=== PATIENT | female | born 1980 | race Caucasian/White ===

== ENCOUNTER 2024-07-18 15:34 | Observation (INO) ==
[2024-07-18 16:26] LABS: Basophils # (auto) 0.07 K/uL (0.00-0.20); Basophils % (auto) 0.5 %; Eosinophils # (auto) 0.67 K/uL (0.00-0.50); Eosinophils % (auto) 4.5 %; Hemoglobin 13.4 g/dl (12.0-16.0); Immature Granulocytes # (auto) 0.07 K/uL (0.01-0.20); Immature Granulocytes % (auto) 0.5 %; Lymphocytes # (auto) 3.49 K/uL (1.20-3.40); Lymphocytes % (auto) 23.3 %; Mean Corpuscular Hemoglobin 27.4 pg (25.0-34.0); Mean Corpuscular Hgb Conc 32.7 g/dL (32.0-36.0); Mean Corpuscular Volume 83.8 fL (80.0-100.0); Mean Platelet Volume 9.8 fL (9.4-12.4); Monocytes # (auto) 0.88 K/uL (0.11-0.59); Monocytes % (auto) 5.9 %; Neutrophils % (auto) 65.3 %; Platelet Count 463 K/uL (130-400); RDW Coefficient of Variation 14.5 % (11.5-14.5); RDW Standard Deviation 43.8 fL (36.4-46.3); Red Blood Count 4.89 M/uL (4.20-5.40); White Blood Count 14.98 K/ul (4.8-10.8)
[2024-07-18 16:29] LABS: Appearance Urine Clear (Clear); Bilirubin Urine Negative (Negative); Blood Urine Negative (Negative); Color Urine Yellow; Glucose Urine UA Negative (Negative); Ketones Urine Negative (Negative); Leukocyte Esterase Urine Negative (Negative); Nitrite Urine Negative (Negative); Protein Urine Negative (Negative); Specific Gravity Urine 1.005 (1.000-1.030); Urobilinogen Urine Negative (Negative); pH Urine 6.5 (4.5-7.5)
--- NOTE | 2024-07-18 16:34 | Emergency Department Note ---
History of Present Illness General Chief complaint: Abdominal Pain Stated complaint: RT UPPER QUADRIENT PAIN Time Seen by Provider: 07/18/24 15:58 History of Present Illness Maximum Pain Intensity: 5 Patient is a 43-year-old female with past medical history significant for anxiety/depression, hypertension, asthma, acid reflux who presents to the emergency department for evaluation of right upper quadrant abdominal pain x 2-3 days. Historically, patient reports that she was diagnosed with gallstones at age 27 when she was . She had a very severe gallbladder attack at that time, but was not a surgical candidate due to her . Afterwards, she had the gallbladder evaluated, noting gallstones, but no surgical intervention was recommended. Patient notes that on occasion, she will have an episode that she attributes to her gallbladder where she gets right upper quadrant abdominal pain. She gets about 1 or 2 episodes per year. Her pain usually only lasts her for about a day. Patient states that she woke up with bilateral upper abdominal pain on Friday morning, 2 days ago. The pain localized to the right upper quadrant later that day. It is a constant, aching pain initially was a 3/10, now she rates it a 5/10. It radiates through to her back. She is nauseous but has not vomited. She reports some loose stools. She reports eating [employer] the day before her symptoms started. She denies any fever, chills, or malaise. She tried taking Tums without relief. Home Medications Medication Instructions Recorded Confirmed Type Albuterol (Ventolin) 2 puff inhalation QID 5 days ##0 09/05/08 07/18/24 History amlodipine 10 mg tablet 10 mg PO DAILY 07/18/24 07/18/24 History budesonide-formoterol HFA 160 1 puff inhalation BID 07/18/24 07/18/24 History mcg-4.5 mcg/actuation aerosol inhaler fluoxetine 40 mg capsule 40 mg PO DAILY 07/18/24 07/18/24 History montelukast 10 mg tablet 10 mg PO DAILY 07/18/24 07/18/24 History pantoprazole 40 mg tablet,delayed 40 mg PO DAILY 07/18/24 07/18/24 History release Allergies Allergy/AdvReac Type Severity Reaction Status Date / Time azithromycin Allergy Severe Rash Verified 07/18/24 20:22 Past Med/Surg History Problem List (Updated 07/18/24 @ 20:45 by Lindsay Bone) Right upper quadrant abdominal pain (Acute) Symptomatic cholelithiasis (Acute) Medical History GERD (gastroesophageal reflux disease) Hypertension Asthma Anxiety and depression Surgical History History of dilatation and curettage Social History Smoking Status: Unknown if ever smoked Preferred Language: [place]se Feels Safe at Home: Yes Review of Systems A total of 10 systems reviewed and were otherwise negative Physical Exam Vital Signs Vital Signs - 24 hr 07/18/24 15:40 07/18/24 16:00 07/18/24 16:07 Temperature 36.5 C Temperature Source Temporal Artery Scan Pulse Rate 96 H 86 Pulse Rate [Apical] 87 Pulse Rhythm [Apical] Regular Pulse Strength [Apical] Normal Respiratory Rate 19 20 Respiratory Effort / Characteristics Non-Labored Spontaneous Respiratory Depth Normal Respiratory Pattern Regular Blood Pressure 150/99 H Blood Pressure [Left Arm] 197/96 H Blood Pressure Mean 116 Blood Pressure Mean [Left Arm] 129 Blood Pressure Position [Left Arm] Lying Pulse Oximetry 95 98 Oxygen Delivery Method Room Air Room Air Sepsis Recent Fever Within 48 Hours No Sepsis New/Unexplained Change in Mental Status N/A Sepsis Action Taken by Nursing No Action Required 07/18/24 18:00 07/18/24 20:00 Temperature 36.8 C Temperature Source Oral Pulse Rate Pulse Rate [Apical] 77 82 Pulse Rhythm [Apical] Regular Pulse Strength [Apical] Normal Respiratory Rate 22 20 Respiratory Effort / Characteristics Non-Labored Spontaneous Non-Labored Spontaneous Respiratory Depth Normal Normal Respiratory Pattern Regular Regular Blood Pressure Blood Pressure [Left Arm] 153/105 H 137/103 H Blood Pressure Mean Blood Pressure Mean [Left Arm] 121 114 Blood Pressure Position [Left Arm] Lying Lying Pulse Oximetry 97 99 Oxygen Delivery Method Room Air Room Air Sepsis Recent Fever Within 48 Hours Sepsis New/Unexplained Change in Mental Status Sepsis Action Taken by Nursing CONSTITUTIONAL: Well-appearing 23-year-old female in no acute distress seated on the gurney. EYES: Pupils equal, round, reactive to light and accommodation. EOMs intact without nystagmus. Sclera are anicteric. CARDIOVASCULAR: Regular rate and rhythm. Peripheral pulses easily palpable. RESPIRATORY: Breath sounds equal and clear to auscultation. ABDOMEN: Bowel sounds are present. The abdomen is soft, nondistended, tender to percussion and palpation in the right upper quadrant, with voluntary guarding. Negative Silva sign. No CVA tenderness. INTEGUMENTARY: No lesions or rash, normal skin turgor. LYMPH: No lymphadenopathy. Course Course The patient was seen and assessed as above. External medical records are reviewed. She presents to the emergency department for evaluation of right upper quadrant abdominal pain. Known gallstones, and intermittently has flares, but this is worse and lasting longer than her normal. She was offered but declined medication needs in the emergency department. IV lock was initiated. Laboratory studies were collected. CBC with differential, CMP, lipase, urinalysis and serum hCG were ordered. Gallbladder ultrasound was obtained. Diagnostics, as interpreted by me: Laboratory studies: White count 15,000 with left shift noted. No anemia. Sodium 135, potassium 3.2, otherwise no electrolyte imbalance, no MIKEY. Bilirubin, AST and ALT are normal, slight, nonspecific elevation of the alk phos at 126. Lipase is negative. test negative. Urine microscopy clear. Imaging studies: Gallbladder ultrasound notes multiple gallstones and mildly dilated gallbladder with a possible stone lodged in the gallbladder neck. Gallbladder wall thickness is normal. There is no pericholecystic fluid. No ductal dilatation. Patient was reassessed. Laboratory and diagnostic imaging studies were reviewed with her. Consultation was placed with Dr. Nayeli Norton with general surgery. Options posed to the patient were admission for IV antibiotics and surgical intervention versus a trial of supportive care at home with close general surgery follow-up later this week. After discussing both options at length, patient has elected the former. Plan for admission discussed with underwriting support manager, Ariadna Burk. Contacted general surgery, Vivi Ortiz PA-C, and reviewed the patient. She evaluated the patient in the emergency department. Please refer to surgical H&P for further information. Differential diagnosis: GERD, gastritis, esophagitis, peptic ulcer disease, acute pancreatitis, biliary colic, acute cholecystitis, symptomatic cholelithiasis, choledocholithiasis, ascending cholangitis, among others. Administered Medications Discontinued Medications Piperacillin Sod/Tazobactam Sod (Zosyn) 4.5 gm in 100 mls @ 200 mls/hr IV NOW ONE; Protocol Stop: 07/18/24 20:38 Last Admin: 07/18/24 20:18 Dose: 200 mls/hr Documented By: BYRON Medical Decision Making Differential Diagnosis See ED course. Medical Records Attestation: I reviewed the patient's medical records. Home Medications Current Medication List: was personally reviewed by me Laboratory Data Attestation: I reviewed the patient's lab results. 07/18/24 16:09 07/18/24 16:09 Lab Results 07/18/24 07/18/24 Range/Units 16:09 16:10 WBC 14.98 H (4.8-10.8) K/ul RBC 4.89 (4.20-5.40) M/uL Hgb 13.4 (12.0-16.0) g/dl Hct 41.0 (37.0-47.0) % MCV 83.8 (80.0-100.0) fL MCH 27.4 (25.0-34.0) pg MCHC 32.7 (32.0-36.0) g/dL RDW Std Deviation 43.8 (36.4-46.3) fL RDW Coeff of [place] 14.5 (11.5-14.5) % Plt Count 463 H (130-400) K/uL MPV 9.8 (9.4-12.4) fL Immature Gran % (Auto) 0.5 % Neut % (Auto) 65.3 % Lymph % (Auto) 23.3 % [place] % (Auto) 5.9 % Eos % (Auto) 4.5 % Baso % (Auto) 0.5 % Neut # (Auto) 9.80 H (1.40-6.50) K/uL Lymph # (Auto) 3.49 H (1.20-3.40) K/uL [place] # (Auto) 0.88 H (0.11-0.59) K/uL Eos # (Auto) 0.67 H (0.00-0.50) K/uL Baso # (Auto) 0.07 (0.00-0.20) K/uL Immature Gran # (Auto) 0.07 (0.01-0.20) K/uL Sodium 135 L (136-145) mmol/L Potassium 3.2 L (3.5-5.1) mmol/L Chloride 102 (98-107) mmol/L Carbon Dioxide 23 (21-32) mmol/L Anion Gap 10 (3-11) BUN 11 (6-23) mg/dl Creatinine 0.94 (0.6-1.2) mg/dl Est Cr Clr Drug Dosing 76.9 ml/min eGFR 78.18 BUN/Creatinine Ratio 11.7 (10-20) Glucose 78 (70-99(Fasting)) mg/dl Calcium 9.4 (8.6-10.3) mg/dl Total Bilirubin 0.5 (0.2-1.0) mg/dl AST 19 (13-39) U/L ALT 16 (7-52) U/L Alkaline Phosphatase 126 H (34-104) U/L Total Protein 7.5 (6.0-8.3) gm/dl Albumin 4.3 (3.4-5.0) gm/dl Globulin 3.2 (2.5-4.0) gm/dl Albumin/Globulin Ratio 1.3 (0.9-2) Lipase 30 (11-82) U/L HCG, Qual Negative (Negative) Urine Color Yellow Urine Appearance Clear (Clear) Urine pH 6.5 (4.5-7.5) Ur Specific [place] 1.005 (1.000-1.030) Urine Protein Negative (Negative) Urine Glucose (UA) Negative (Negative) Urine Ketones Negative (Negative) Urine Blood Negative (Negative) Urine Nitrite Negative (Negative) Urine Bilirubin Negative (Negative) Urine Urobilinogen Negative (Negative) Ur Leukocyte Esterase Negative (Negative) Imaging Data Attestation: I personally reviewed and interpreted this imaging study as follows: Radiologist's Impression: Gallbladder Ultrasound 07/18/24 16:28 EXAM: US Abdomen Limited Right Upper Quadrant INDICATION: Pain. TECHNIQUE: Real-time ultrasound of the right upper quadrant with image documentation. COMPARISON: No relevant prior studies available. FINDINGS: Liver: Upper normal size. Mildly heterogeneous and minimally echogenic. Smooth cortical contour. No mass. No intrahepatic bile duct dilation. Gallbladder: Distended and contains multiple stones. 1 stone may be lodged in the neck. No wall thickening or pericholecystic fluid. Negative sonographic Silva sign.. Common bile duct: No significant abnormality noted. No stones. No dilation. Pancreas: No significant abnormality noted. Right kidney: 11.4 cm long. Normal cortical thickness and echotexture. No mass or stone. There is a simple cyst in the upper pole measuring 1.6 cm. No further assessment required.. IMPRESSION: 1. Multiple gallstones and a mildly dilated gallbladder with 1 possibly lodged in the neck. The wall is normal thickness at this time. If additional imaging is required to exclude early or developing acute cholecystitis, consider HIDA scan. 2. Hepatic steatosis. ACT 112: Negative or not required by law. Electronically signed by Malia Durbin 07-18-2024 5:49 PM MDM Narrative See ED course. Impression & Plan Symptomatic cholelithiasis, Right upper quadrant abdominal pain Discharge Plan Visit Data Chief Complaint: Abdominal Pain Stated Complaint: RT UPPER QUADRIENT PAIN ED Provider: Efraín Yates ED Midlevel Provider: Lindsay Bone Discharge Problem: Symptomatic cholelithiasis, Right upper quadrant abdominal pain Patient Disposition: Being Evaluated by Surgeon Forms Stand Alone Forms: My [facility] [place] [employer] Prescriptions Prescriptions: No Action Albuterol (Ventolin) inhaler 2 puff Inhalation QID 5 Days Qty: 0 fluoxetine 40 mg capsule 40 mg PO DAILY amlodipine 10 mg tablet 10 mg PO DAILY pantoprazole 40 mg tablet,delayed release (DR/EC) 40 mg PO DAILY montelukast 10 mg tablet 10 mg PO DAILY budesonide-formoterol 160-4.5 mcg/actuation HFA aerosol inhaler 1 puff INHALATION BID Referrals Referrals: Roxanne Newell MD [Physician] -
[2024-07-18 16:45] LABS: Albumin Globulin Ratio 1.3 (0.9-2); Albumin Level 4.3 gm/dl (3.4-5.0); BUN Creatinine Ratio 11.7 (10-20); Bilirubin,Total 0.5 mg/dl (0.2-1.0); Calcium 9.4 mg/dl (8.6-10.3); Creatinine Clr Calc Pharmacy 76.9 ml/min; Globulin 3.2 gm/dl (2.5-4.0); Potassium 3.2 mmol/L (3.5-5.1); Total Protein 7.5 gm/dl (6.0-8.3)
[2024-07-18 16:51] LABS: Pregnancy Test, Serum Negative (Negative)
--- NOTE | 2024-07-18 17:49 | Ultrasound Report ---
EXAM: US Abdomen Limited Right Upper Quadrant INDICATION: Pain. TECHNIQUE: Real-time ultrasound of the right upper quadrant with image documentation. COMPARISON: No relevant prior studies available. FINDINGS: Liver: Upper normal size. Mildly heterogeneous and minimally echogenic. Smooth cortical contour. No mass. No intrahepatic bile duct dilation. Gallbladder: Distended and contains multiple stones. 1 stone may be lodged in the neck. No wall thickening or pericholecystic fluid. Negative sonographic Silva sign.. Common bile duct: No significant abnormality noted. No stones. No dilation. Pancreas: No significant abnormality noted. Right kidney: 11.4 cm long. Normal cortical thickness and echotexture. No mass or stone. There is a simple cyst in the upper pole measuring 1.6 cm. No further assessment required.. IMPRESSION: 1. Multiple gallstones and a mildly dilated gallbladder with 1 possibly lodged in the neck. The wall is normal thickness at this time. If additional imaging is required to exclude early or developing acute cholecystitis, consider HIDA scan. 2. Hepatic steatosis. ACT 112: Negative or not required by law. Electronically signed by Malia Durbin 07-18-2024 5:49 PM
[2024-07-18] MEDS: PIPERACILLIN/TAZOBACTAM 4.5 GM/100 ML BAG IV ONE (20:18)
--- NOTE | 2024-07-18 20:57 | History & Physical Report ---
<Statement entered by Avis Fuller, - 07/20/24 12:53> I discussed this case with the overnight PA and agreed with the plan Date of Service July 18, 2024 Assessment & Plan (1) Acute cholecystitis: Plan: Patient is a 43-year-old female who presented to the ED for concerns for RUQ abdominal pain since Friday after eating fast food. Patient has had RUQ pain in the past for years, however it was never severe in nature and only happened 1-2 times per year so she has never perused surgery. Patient states pain has been present and consistent and has now started to radiate into her back. Patient was worked up in the ED this evening and was found to have an elevated WBC of 14 and US with results of gallbladder wall thickening and cholelithiasis. Patient denies any previous abdominal surgeries. She was seen and evaluated this evening by the surgery team and patient is nontoxic appearing and stable vitals. Patient is tender in the RUQ on exam with +Silva sign. Patient will be admitted to the surgical service. Clears for now, NPO after midnight IV hydration with LR Pain control with IV Tylenol and Morphine for moderate-severe pain IV antibiotic coverage with Zosyn f/u am labs Patient will tentatively undergo surgical intervention tomorrow for cholecystectomy. Patient is in agreement with this plan. Hospital consult placed for management of chronic conditions/resumption of home medications History of Present Illness Chief Complaint: Abdominal pain Patient is a 43-year-old female who presented to the ED for concerns for abdominal pain. Patient states that for the last 2-3 days she's had persistent right upper quadrant abdominal pain. On occasion she states she has had gallbladder attacks in the past but they have been mild in nature and never lasted very long. She states that when she was in her 20s she had similar symptoms and was found to have gallstones however due to her she did not undergo surgery. She did follow up with her PCP regarding her gallstones after giving , however there was no acute cholecystics and her symptoms had ultimately subsided and she never perused surgery. She states prior to this, she has only had episodes of pain 1-2 times a year. However, since this past Friday she has had persistent pain after eating fast food the night before. States that the pain originally started in her epigastric area that has now moved into her RUQ and has been constant since. States the pain does now radiate into her back/shoulder blades. She has had associated nausea however no emesis. She otherwise denies new onset fevers, chills, CP or SOB. She was worked up in the ED and was found to have an elevated WBC at 14 along with US imaging with results of gallbladder wall thickening and gallstones. Patient also denies any previous abdominal surgeries. Allergies Allergy/AdvReac Type Severity Reaction Status Date / Time azithromycin Allergy Severe Rash Verified 07/18/24 20:22 Home Medications Medication Instructions Recorded Confirmed Type Albuterol (Ventolin) 2 puff inhalation QID 5 days ##0 09/05/08 07/18/24 History amlodipine 10 mg tablet 10 mg PO DAILY 07/18/24 07/18/24 History budesonide-formoterol HFA 160 1 puff inhalation BID 07/18/24 07/18/24 History mcg-4.5 mcg/actuation aerosol inhaler fluoxetine 40 mg capsule 40 mg PO DAILY 07/18/24 07/18/24 History montelukast 10 mg tablet 10 mg PO DAILY 07/18/24 07/18/24 History pantoprazole 40 mg tablet,delayed 40 mg PO DAILY 07/18/24 07/18/24 History release Past Med/Surg History Problem List (Updated 07/18/24 @ 21:43 by Vivi Parikh PA-C) Acute cholecystitis Right upper quadrant abdominal pain (Acute) Symptomatic cholelithiasis (Acute) Medical History GERD (gastroesophageal reflux disease) Hypertension Asthma Anxiety and depression Surgical History History of dilatation and curettage Social History Smoking Status: Unknown if ever smoked Preferred Language: Georgian Feels Safe at Home: Yes Review of Systems Review of Systems: All systems reviewed & are unremarkable except as noted in HPI & below Physical Exam Constitutional: WD/WN, vitals as above Respiratory: normal respiratory effort, lungs clear to auscultation Cardiovascular: RRR, no murmur, no edema Gastrointestinal (Abdomen): Abdomen soft and nondistended. +TTP in the RUQ with +Silva' sig. No rebound, guarding or signs of peritonitis Skin: no rashes, warm and dry Psychiatric: A+Ox3, euthymic affect Results & Data Results & Data Vital Signs (Past 12 Hours) Vital Signs Temp Pulse Pulse Resp BP BP Pulse Ox 07/18/24 20:48 80 07/18/24 20:00 36.8 C 82 20 137/103 H 99 07/18/24 18:00 77 22 153/105 H 97 07/18/24 16:07 86 07/18/24 16:00 87 20 197/96 H 98 07/18/24 15:40 36.5 C 96 H 19 150/99 H 95 O2 Del Method 07/18/24 20:48 07/18/24 20:00 Room Air 07/18/24 18:00 Room Air 07/18/24 16:07 07/18/24 16:00 Room Air 07/18/24 15:40 Room Air Diagnostic Findings EXAM: US Abdomen Limited Right Upper Quadrant INDICATION: Pain. TECHNIQUE: Real-time ultrasound of the right upper quadrant with image documentation. COMPARISON: No relevant prior studies available. FINDINGS: Liver: Upper normal size. Mildly heterogeneous and minimally echogenic. Smooth cortical contour. No mass. No intrahepatic bile duct dilation. Gallbladder: Distended and contains multiple stones. 1 stone may be lodged in the neck. No wall thickening or pericholecystic fluid. Negative sonographic Silva sign.. Common bile duct: No significant abnormality noted. No stones. No dilation. Pancreas: No significant abnormality noted. Right kidney: 11.4 cm long. Normal cortical thickness and echotexture. No mass or stone. There is a simple cyst in the upper pole measuring 1.6 cm. No further assessment required.. IMPRESSION: 1. Multiple gallstones and a mildly dilated gallbladder with 1 possibly lodged in the neck. The wall is normal thickness at this time. If additional imaging is required to exclude early or developing acute cholecystitis, consider HIDA scan. 2. Hepatic steatosis. Code Status & VTE Plan VTE Prophylaxis Plan VTE Prophylaxis will be ordered: Yes PG Care Time/CCT Total # of Minutes Spent Total Time Spent with Patient: Total time spent is greater than 50% in coordination of care (as documented) at patient's floor/unit and/or counseling patient: Coding Level of Care Code 60279 INT INP/OBS CARE MIN Diagnoses Acute cholecystitis K81.0
[2024-07-18] MEDS ORDERED: ONDANSETRON INJ 2 MG/ML 2 ML VIAL IV PRN (22:35)
[2024-07-18] MEDS ORDERED: MoRPHine SULFATE 2 MG/ML CARP IV PRN (22:35)
[2024-07-18] MEDS ORDERED: MoRPHine SULFATE 4 MG/ML 1 ML CARP\\VIAL IV PRN (22:35)
[2024-07-18] MEDS: LACTATED RINGER'S 1,000 ML IV SCH (23:04)
[2024-07-19 00:52] LABS: Magnesium 1.7 mg/dl (1.7-2.4)
[2024-07-19] MEDS: POTASSIUM CHLORIDE CRTAB 20 MEQ TABCR PO STA (00:56)
[2024-07-19] MEDS: POTASSIUM CHLORIDE 20 MEQ in D5W AND LACTATED RINGERS 1,000 ML IV ONE (01:38)
[2024-07-19] MEDS: PIPERACILLIN/TAZOBACTAM 4.5 GM/100 ML BAG IV SCH (01:39)
--- NOTE | 2024-07-19 01:50 | Hospitalist Consultation ---
Date of Consultation July 19, 2024 Assessment & Plan (1) Acute cholecystitis: Final Assessment and Recommendations as follows : Acute cholecystitis No sepsis for now hypertension, slightly elevated bronchial asthma, stable Hypokalemia secondary decreased p.o. intake Agree with Zosyn for cholecystitis Surgery contemplated today. Replace potassium DVT prophylaxis. SCDs as per admission orders Thank you very much for this consultation. Dr. Bates will follow patient's progress. Text document was generated using [employer] voice recognition software. It may contain grammatical or spelling errors. Kindly contact undersigned for clarification of any documentation item in question. History of Present Illness Reason for Consultation: Medical management Requesting Physician: Dr. Norton/Vivi Parikh PA-C Attending Physician: Avis Fuller DO History of Present Illness PCP : Trinh Whelan PA-C History obtained from patient and records. Medical history significant for hypertension, bronchial asthma, cholelithiasis. 2 days history of achy right upper quadrant pain similar to gallstone attack but not as severe. Some radiation to the back. Nausea without emesis. Cheeseburger and [place] fries consumption 3 days ago which is not usual food fare for patient. No fever, no chills, no chest pain, no SOB. Patient consulted ER yesterday. Zosyn administered for cholecystitis. Patient admitted by General Surgery service. Medical History as above Surgical History : D&C Family History : Dementia, heart disease, seizures Personal/Social history : Non-smoker, occasional EtOH intake, [employer] nurse Allergies Allergy/AdvReac Type Severity Reaction Status Date / Time azithromycin Allergy Severe Rash Verified 07/18/24 20:22 Home Medications Medication Instructions Recorded Confirmed Type Albuterol (Ventolin) 2 puff inhalation QID 5 days ##0 09/05/08 07/18/24 History amlodipine 10 mg tablet 10 mg PO DAILY 07/18/24 07/18/24 History budesonide-formoterol HFA 160 1 puff inhalation BID 07/18/24 07/18/24 History mcg-4.5 mcg/actuation aerosol inhaler fluoxetine 40 mg capsule 40 mg PO DAILY 07/18/24 07/18/24 History montelukast 10 mg tablet 10 mg PO DAILY 07/18/24 07/18/24 History pantoprazole 40 mg tablet,delayed 40 mg PO DAILY 07/18/24 07/18/24 History release Patient History Medical History GERD (gastroesophageal reflux disease) Hypertension Asthma Anxiety and depression Surgical History History of dilatation and curettage Social History Smoking Status: Never smoker Second Hand Exposure: No; Do You Dip or Chew Tobacco: No; Tobacco Cessation Education Requested by Patient: No Hx Alcohol Use: Yes Alcohol type: beer Hx Substance Use: No Preferred Language: Persian Communication Ability: Effective Doctor Of Radiology Required: No Beliefs That Will Affect Care: None Current Living Situation: Family Other Information That Helps Us Care for You: No Feels Safe at Home: Yes Safety Concerns: Feels Safe At This Time Assistive Devices: Glasses Review of Systems Review of Systems: As per HPI, all other systems reviewed and negative Physical Exam Physical Exam: GENERAL: Comfortable, obese, pleasant, no respiratory distress SKIN: Normal color, warm HEENT: [place] palpebral conjunctivae, no ptosis, dry buccal mucosa NECK : Supple, no tenderness CHEST : CTA, no tenderness HEART : RRR, no obvious murmurs ABDOMEN: Some distention, minimal RUQ tenderness EXTREMITIES : Minimal LE swelling, no LE tenderness, no other conspicuous deformities noted NEUROLOGIC : Coherent, no facial asymmetry, no other gross focality Results & Data Results & Data Vital Signs (Past 12 Hours) Vital Signs Temp Pulse Pulse Pulse Resp BP BP 07/18/24 22:35 36.9 C 74 18 154/97 H 07/18/24 22:35 07/18/24 22:35 36.9 C 74 18 154/97 H 07/18/24 22:00 79 18 132/80 07/18/24 20:48 80 07/18/24 20:00 36.8 C 82 20 137/103 H 07/18/24 18:00 77 22 153/105 H 07/18/24 16:07 86 07/18/24 16:00 87 20 197/96 H 07/18/24 15:40 36.5 C 96 H 19 150/99 H Pulse Ox Pulse Ox O2 Del Method O2 Del Method 07/18/24 22:35 95 Room Air 07/18/24 22:35 95 Room Air 07/18/24 22:35 95 Room Air 07/18/24 22:00 96 Room Air 07/18/24 20:48 07/18/24 20:00 99 Room Air 07/18/24 18:00 97 Room Air 07/18/24 16:07 07/18/24 16:00 98 Room Air 07/18/24 15:40 95 Room Air Laboratory Results Laboratory Results WBC 14.98 K/ul (4.8-10.8) H 07/18/24 16:09 RBC 4.89 M/uL (4.20-5.40) 07/18/24 16:09 Hgb 13.4 g/dl (12.0-16.0) 07/18/24 16:09 Hct 41.0 % (37.0-47.0) 07/18/24 16:09 MCV 83.8 fL (80.0-100.0) 07/18/24 16:09 MCH 27.4 pg (25.0-34.0) 07/18/24 16:09 MCHC 32.7 g/dL (32.0-36.0) 07/18/24 16:09 RDW Std Deviation 43.8 fL (36.4-46.3) 07/18/24 16:09 RDW Coeff of [place] 14.5 % (11.5-14.5) 07/18/24 16:09 Plt Count 463 K/uL (130-400) H 07/18/24 16:09 MPV 9.8 fL (9.4-12.4) 07/18/24 16:09 Immature Gran % (Auto) 0.5 % 07/18/24 16:09 Neut % (Auto) 65.3 % 07/18/24 16:09 Lymph % (Auto) 23.3 % 07/18/24 16:09 [place] % (Auto) 5.9 % 07/18/24 16:09 Eos % (Auto) 4.5 % 07/18/24 16:09 Baso % (Auto) 0.5 % 07/18/24 16:09 Neut # (Auto) 9.80 K/uL (1.40-6.50) H 07/18/24 16:09 Lymph # (Auto) 3.49 K/uL (1.20-3.40) H 07/18/24 16:09 [place] # (Auto) 0.88 K/uL (0.11-0.59) H 07/18/24 16:09 Eos # (Auto) 0.67 K/uL (0.00-0.50) H 07/18/24 16:09 Baso # (Auto) 0.07 K/uL (0.00-0.20) 07/18/24 16:09 Immature Gran # (Auto) 0.07 K/uL (0.01-0.20) 07/18/24 16:09 Sodium 135 mmol/L (136-145) L 07/18/24 16:09 Potassium 3.2 mmol/L (3.5-5.1) L 07/18/24 16:09 Chloride 102 mmol/L (98-107) 07/18/24 16:09 Carbon Dioxide 23 mmol/L (21-32) 07/18/24 16:09 Anion Gap 10 (3-11) 07/18/24 16:09 BUN 11 mg/dl (6-23) 07/18/24 16:09 Creatinine 0.94 mg/dl (0.6-1.2) 07/18/24 16:09 Est Cr Clr Drug Dosing 76.9 ml/min 07/18/24 16:09 eGFR 78.18 07/18/24 16:09 BUN/Creatinine Ratio 11.7 (10-20) 07/18/24 16:09 Glucose 78 mg/dl (70-99(Fasting)) 07/18/24 16:09 Calcium 9.4 mg/dl (8.6-10.3) 07/18/24 16:09 Magnesium 1.7 mg/dl (1.7-2.4) 07/18/24 16:09 Total Bilirubin 0.5 mg/dl (0.2-1.0) 07/18/24 16:09 AST 19 U/L (13-39) 07/18/24 16:09 ALT 16 U/L (7-52) 07/18/24 16:09 Alkaline Phosphatase 126 U/L (34-104) H 07/18/24 16:09 Total Protein 7.5 gm/dl (6.0-8.3) 07/18/24 16:09 Albumin 4.3 gm/dl (3.4-5.0) 07/18/24 16:09 Globulin 3.2 gm/dl (2.5-4.0) 07/18/24 16:09 Albumin/Globulin Ratio 1.3 (0.9-2) 07/18/24 16:09 Lipase 30 U/L (11-82) 07/18/24 16:09 HCG, Qual Negative (Negative) 07/18/24 16:09 Urine Color Yellow 07/18/24 16:10 Urine Appearance Clear (Clear) 07/18/24 16:10 Urine pH 6.5 (4.5-7.5) 07/18/24 16:10 Ur Specific [place] 1.005 (1.000-1.030) 07/18/24 16:10 Urine Protein Negative (Negative) 07/18/24 16:10 Urine Glucose (UA) Negative (Negative) 07/18/24 16:10 Urine Ketones Negative (Negative) 07/18/24 16:10 Urine Blood Negative (Negative) 07/18/24 16:10 Urine Nitrite Negative (Negative) 07/18/24 16:10 Urine Bilirubin Negative (Negative) 07/18/24 16:10 Urine Urobilinogen Negative (Negative) 07/18/24 16:10 Ur Leukocyte Esterase Negative (Negative) 07/18/24 16:10 Impressions Gallbladder Ultrasound 07/18/24 16:28 EXAM: US Abdomen Limited Right Upper Quadrant INDICATION: Pain. TECHNIQUE: Real-time ultrasound of the right upper quadrant with image documentation. COMPARISON: No relevant prior studies available. FINDINGS: Liver: Upper normal size. Mildly heterogeneous and minimally echogenic. Smooth cortical contour. No mass. No intrahepatic bile duct dilation. Gallbladder: Distended and contains multiple stones. 1 stone may be lodged in the neck. No wall thickening or pericholecystic fluid. Negative sonographic Silva sign.. Common bile duct: No significant abnormality noted. No stones. No dilation. Pancreas: No significant abnormality noted. Right kidney: 11.4 cm long. Normal cortical thickness and echotexture. No mass or stone. There is a simple cyst in the upper pole measuring 1.6 cm. No further assessment required.. IMPRESSION: 1. Multiple gallstones and a mildly dilated gallbladder with 1 possibly lodged in the neck. The wall is normal thickness at this time. If additional imaging is required to exclude early or developing acute cholecystitis, consider HIDA scan. 2. Hepatic steatosis. ACT 112: Negative or not required by law. Electronically signed by Malia Durbin 07-18-2024 5:49 PM
[2024-07-19] MEDS: MAGNESIUM SULFATE / D5W 1 GM/100 ML BAG IV ONE (02:03)
[2024-07-19] MEDS: ACETAMINOPHEN 1,000 MG/100 ML VIAL IV PRN (02:31)
[2024-07-19] MEDS ORDERED: ALBUT/IPRATROP 3MG/0.5MG NEB 3 ML VIAL NEB PRN (03:05)
[2024-07-19 06:10] LABS: Basophils # (auto) 0.07 K/uL (0.00-0.20); Basophils % (auto) 0.6 %; Eosinophils # (auto) 0.68 K/uL (0.00-0.50); Eosinophils % (auto) 5.6 %; Hematocrit (blood only) 38.5 % (37.0-47.0); Hemoglobin 12.4 g/dl (12.0-16.0); Immature Granulocytes # (auto) 0.05 K/uL (0.01-0.20); Immature Granulocytes % (auto) 0.4 %; Lymphocytes # (auto) 2.38 K/uL (1.20-3.40); Lymphocytes % (auto) 19.5 %; Mean Corpuscular Hemoglobin 27.1 pg (25.0-34.0); Mean Corpuscular Hgb Conc 32.2 g/dL (32.0-36.0); Mean Corpuscular Volume 84.2 fL (80.0-100.0); Monocytes # (auto) 0.81 K/uL (0.11-0.59); Monocytes % (auto) 6.6 %; Neutrophils # (auto) 8.22 K/uL (1.40-6.50); Neutrophils % (auto) 67.3 %; Platelet Count 414 K/uL (130-400); RDW Coefficient of Variation 14.6 % (11.5-14.5); RDW Standard Deviation 44.8 fL (36.4-46.3); Red Blood Count 4.57 M/uL (4.20-5.40); White Blood Count 12.21 K/ul (4.8-10.8)
[2024-07-19 06:25] LABS: Albumin Level 3.5 gm/dl (3.4-5.0); BUN Creatinine Ratio 10.7 (10-20); Bilirubin Direct 0.1 mg/dl (0-0.2); Bilirubin,Total 0.7 mg/dl (0.2-1.0); Calcium 8.5 mg/dl (8.6-10.3); Creatinine Clr Calc Pharmacy 80.2 ml/min; Potassium 3.7 mmol/L (3.5-5.1); Total Protein 6.6 gm/dl (6.0-8.3)
--- OUTSIDE RECORDS SUMMARY | 2024-07-19 06:30 | External Medical Summary | Summary of Care ---
Author Name Unknown Organization [facility] Address [address] [place] [address] Phone [phone] Care Team Providers Care Retort Load Expediter Name Role Phone Shamar Dowell MD Primary Care Provider [phone] Reason for Visit * Reason Comments Physical-Exam Wellness form for In surance Encounter Details Date Type Department Care Team ([facility] st Contact Info) Description 03/19/2024 7:40 AM EDT Office Visit [facility] [address] [place] [address] Shamar Dowell MD [address] [place] [address] Physical exam, annual*; HTN, goal below 140/90; Intermittent asthma with reliever use up to twice per week without complication; Major depressive disorder, recurrent, moderate (HCC); LUCY (generalized anxiety disorder); Vaccine for viral hepatitis; Encounter for screening mammogram for malignant neoplasm of breast; Screening for depression; Gastroesophageal reflux disease without esophagitis; Class 1 obesity without serious comorbidity with body mass index (BMI) of 30.0 to 30.9 in adult, unspecified obesity type; Cervical cancer screening; Family history of thyroid disease; Weight gain Allergies Active Allergy Reactions Criticality Noted Date Comments Azithromycin Flushing,Itching,Rash 06/12/2020 documented as of this encounter (statuses as of 03/19/2024) Medications Medication Sig Dispensed Refills Start Date End Date Status Vitamin D 125 MCG (5000 UT) Oral Capsule Take by mouth. Active Mirena (52 MG) 20 MCG/24HR Intrauterine Intrauterine Device (Levonorgestrel) Insert into uterus . Active Fluticasone Propionate 50 MCG/ACT Nasal SuspensionIndicat ions:SOB (shortness of breath),Acute URI,Mild persistent asthma with exacerbation Administer into each nostril 2 Sprays in the morning. 1 Each 3 2 Active amLODIPine Besylate 10 MG Oral Tablet (Norvasc)Indicati ons:HTN, goal below 140/90 TAKE ONE TABLET BY MOUTH EVERY MORNING 90 Tablet 3 3 07/07/20 24 Active Albuterol Sulfate HFA 108 (90 Base) MCG/ACT Inhalation Aerosol SolutionIndicatio ns:SOB (shortness of breath),Acute URI,Mild persistent asthma with exacerbation INHALE 2 PUFFS BY MOUTH EVERY 6 HOURS NEEDED FOR WHEEZING OR DYSPNEA 54 g 1 4 Active Pantoprazole Sodium 40 MG Oral Tablet Delayed Release (Protonix)Indicat ions:Gastroesopha geal reflux disease without esophagitis TAKE ONE TABLET BY MOUTH EVERY MORNING 90 Tablet 1 4 Active FLUoxetine HCl 40 MG Oral Capsule (PROzac) Take 1 Capsule by mouth in the morning. 30 Capsule 4 Active FLUoxetine HCl 40 MG Oral Capsule (PROzac) Take 1 Capsule by mouth in the morning. 90 Capsule 3 4 Active Budesonide-Formot ronald Fumarate 160-4.5 MCG/ACT Inhalation Aerosol (Symbicort) Inhale 2 Puffs by mouth in the morning and 2 Puffs before bedtime. 30.6 g 3 4 Active Montelukast Sodium 10 MG Oral Tablet (Singulair) Take 1 Tablet by mouth in the morning. 90 Tablet 3 4 Active Escitalopram Oxalate 10 MG Oral Tablet (Lexapro)Indicati ons:LUCY (generalized anxiety disorder),Major depressive disorder, recurrent, moderate (HCC),Other insomnia Take 1 Tablet by mouth at bedtime. 30 Tablet 5 3 03/19/20 24 Discontinued(Med ication List Clean Up) Budesonide-Formot ronald Fumarate 160-4.5 MCG/ACT Inhalation Aerosol (Symbicort) INHALE 2 PUFFS BY MOUTH TWO TIMES A DAY -- IN THE MORNING AND BEFORE BEDTIME 30.6 g 1 3 03/19/20 24 Discontinued(Ref ill) FLUoxetine HCl 40 MG Oral Capsule (PROzac) TAKE ONE CAPSULE BY MOUTH EVERY DAY 90 Capsule 3 03/19/20 24 Discontinued(Ref ill) FLUoxetine HCl 40 MG Oral Capsule (PROzac) TAKE ONE CAPSULE BY MOUTH EVERY MORNING 90 Capsule 1 3 03/19/20 24 Discontinued(Ref ill) Montelukast Sodium 10 MG Oral Tablet (Singulair) Take 1 Tablet by mouth in the morning. 90 Tablet 3 4 03/19/20 24 Discontinued documented as of this encounter (statuses as of 03/19/2024) Active Problems Problem Noted Date Diagnosed Date Gastroesophageal reflux disease without esophagi tis 03/19/2024 Major depressive disorder, recurrent, moderate 0 02/06/2023 LUCY (generalized anxiety disorder) 12/06/2020 Intermittent asthma with rel iever use up to twice per week without complication 07/25/2020 HTN, goal below 140/90 07/25/2020 documented as of this encounter (statuses as of 03/19/2024) Immunizations Name Administration Dates Next Due COVID-19 mRNA, LNP-s, No Pre serve, 2-Dose Series ([employer]) 09/10/2020,08/20/2020 Seasonal Influenza, PF, 6 M & above, IM , (FluLaval or Fluzone) 07/24/2022,06/09/2020 Seasonal Influenza, Quadrivalent, No Preserve, I M 06/15/2021,06/15/2021 TDAP (age 10 and older)(Boostrix) 06/12/2019 documented as of this encounter Social History Tobacco Use Types Packs/Day Years Used Date Smoking Tobacco: Never Smokeless Tobacco: Never Tobacco Cessation:Counseling Given: Not Answered Alcohol Use Standard Drinks/Week Comments Yes 0 (1 standard drink = 0.6 oz pur e alcohol) occ AUDIT-C Answer Date Recorded Q1: How often do you have a drink containing alc ohol? 2-4 times a month 07/25/2020 Q2: How many drinks containi ng alcohol do you have on a typical day when you are drinking? 1 or 2 07/25/2020 Q3: How often do you have si x or more drinks on one occasion? Never 07/25/2020 PHQ-2 Answer Date Recorded PHQ Adult Total Score 0 11/14/2020 Hunger Vital Sign Answer Date Recorded Within the past 12 months, y ou worried that your food would run out before you got the money to buy more. Never true 03/19/20 24 Within the past 12 months, t he food you bought just didn't last and you didn't have money to get more. Never true 03/19/2024 Childcare Answer Date Recorded Do you feel overwhelmed with taking care of a child, family member or friend? No 03/19/2024 Does your family need help f inding childcare? (Household - for ages 0-17 years) Not on file 03/19/2024 Clothing Answer Date Recorded Have you been unable to get clothing when it was really needed? No 03/19/2024 Is your family able to get c lothes or diapers when needed? (Household - for ages 0-17 years) Not on file 03/19/2024 Personal Safety Answer Date Recorded Do you feel unsafe or have concerns for your saf ety? No 03/19/2024 Do you have concerns for you r family's safety? (Household - for ages 0-17 years) Not on file 03/19/2024 Utilities Answer Date Recorded Do you have trouble paying y our heating, water, or electric bill? No 03/19/2024 Is your family able to pay t he heat, water, or electric bill? (Household - for ages 0-17 years) Not on file 03/19/2024 Does your family have access to good internet? (Household - for ages 0-17 years) Not on file 03/19/2024 Employment Status Answer Date Recorded Are you unemployed or without regular income? No 03/19/2024 Does the household have a re gular source of income? (Household - for ages 0-17 years) Not on file 03/19/2024 Social Connections Answer Date Recorded How often do you feel lonely or isolated from th ose around you? Never 03/19/2024 Financial Resource Strain Answer Date R ecorded Do you have any trouble payi ng for your medications, or do you think you might in the future? No 03/19/2024 Does your family have troubl e paying for medicine? (Household - for ages 0-17 years) Not on file 03/19/2024 Transportation Needs Answer Date Record ed Do you have trouble getting a ride to medical visits or work? (Adult - for ages 18 years and over) Not on file 03/19/2024 Does your family have a hard time getting a ride to doctors visits? (Household - for ages 0-17 years) Not on file 03/19/2024 Has lack of transportation k ept you from medical appointments, meetings, work, or from getting things needed for daily living? Check all that apply. No 03/19/2024 Do you (or your family) have trouble finding or paying for a ride (transportation)? (Household - for ages 0-17 years) Not on file 03/19/2024 Housing Stability Answer Date Recorded Do you currently live in a s helter or have no steady place to sleep at night? No 03/19/2024 Do you think you are at risk of becoming homeless? (Adult - for ages 18 years and over) Not on file 03/19/2024 Does your family worry about paying for your home or becoming homeless? (Household - for ages 0-17 years) Not on file 0 03/19/2024 Are you homeless or worried that you might be in the future? No 03/19/2024 Are you (or your family) robert eless or worried that you might be in the future? (Household - for ages 0-17 years) Not on file Food Insecurity Answer Date Recorded Do you need food for this week? No 03/19/2024 Are you able to get enough f ood for your family? (Household - for ages 0-17 years) Not on file 03/19/2024 Does your family need food t his week? (Household - for ages 0-17 years) Not on file 03/19/2024 Do you always have enough fo od for your family? (Household - for ages 0-17 years) Not on file 03/19/2024 Sex and Gender Information Value Date Recorded Sex Assigned at Female 01/22/2021 8:53 AM EDT Gender Identity Female 01/22/2021 8:53 AM EDT Sexual Orientation Straight 01/22/2021 8: 53 AM EDT Job Start Date Occupation Industry Not on file Not on file Not on file documented as of this encounter Last Filed Vital Signs Vital Sign Reading Time Taken Comments Blood Pressure 118/78 03/19/2024 7:35 AM EDT Pulse 86 03/19/2024 7:35 AM EDT Temperature 36.3 C (97.3 F) 03/19/2024 7:35 AM ED T Respiratory Rate 18 03/19/2024 7:35 AM EDT Oxygen Saturation 97% 03/19/2024 7:35 AM EDT Inhaled Oxygen Concentration - - Weight 74.4 kg (164 lb) 03/19/2024 7:35 AM EDT Height 154.9 cm (5' 1") 03/19/2024 7:35 AM EDT Body Mass Index 30.99 03/19/2024 7:35 AM EDT documented in this encounter Progress Notes * Shamar Dowell MD - 03/19/2024 8:01 AM EDT Subjective Afia Phepls is a 43 year old female. Chief Complaint Patient presents with Physical-Exam Wellness form for Insurance HPI: Here for annual physical PAP 2020 Mammogram - ordered Maternal side family breast ca hx Hypertension , Hl Taking medication as prescribed, see med list. No medication side effects noted. Advised patient tokeep healthy life style, regular exercise with good diet, carla. low sodium diet. And also check BP at home too. Denies associated chest discomfort, chest heaviness, chest pressure, chest tightness, edema, palpitations Mild shortness of breath occ , known asthma Was not using symbicort regularly Chronic rhinitis , will resume singulair Depression anxiety , taking med,s table PMH: Patient Active Problem List Diagnosis Intermittent asthma with reliever use up to twice per week without complication HTN, goal below 140/90 LUCY (generalized anxiety disorder) Major depressive disorder, recurrent, moderate (HCC) Gastroesophageal reflux disease without esophagitis Current Outpatient Medications Medication Sig Dispense Refill Mirena (52 MG) 20 MCG/24HR Intrauterine Intrauterine Device (Levonorgestrel) Insert into uterus . Fluticasone Propionate 50 MCG/ACT Nasal Suspension Administer into each nostril 2 Sprays in the morning. 1 Each 3 amLODIPine Besylate 10 MG Oral Tablet (Norvasc) TAKE ONE TABLET BY MOUTH EVERY MORNING 90 Tablet 3 Albuterol Sulfate HFA 108 (90 Base) MCG/ACT Inhalation Aerosol Solution INHALE 2 PUFFS BY MOUTH EVERY 6 HOURS NEEDED FOR WHEEZING OR DYSPNEA 54 g 1 Pantoprazole Sodium 40 MG Oral Tablet Delayed Release (Protonix) TAKE ONE TABLET BY MOUTH EVERY MORNING 90 Tablet 1 FLUoxetine HCl 40 MG Oral Capsule (PROzac) Take 1 Capsule by mouth in the morning. 30 Capsule 0 FLUoxetine HCl 40 MG Oral Capsule (PROzac) Take 1 Capsule by mouth in the morning. 90 Capsule 3 Budesonide-Formoterol Fumarate 160-4.5 MCG/ACT Inhalation Aerosol (Symbicort) Inhale 2 Puffs by mouth in the morning and 2 Puffs before bedtime. 30.6 g 3 Montelukast Sodium 10 MG Oral Tablet (Singulair) Take 1 Tablet by mouth in the morning. 90 Tablet 3 Vitamin D 125 MCG (5000 UT) Oral Capsule Take by mouth. No current facility-administered medications for this visit. Past Medical History: Diagnosis Date Intermittent asthma with reliever use up to twice per week without complication 07/25/2020 Past Surgical History: Procedure Laterality Date DILATION AND CURETTAGE (D&C) N/A 2006 Review of patient's allergies indicates: Allergen Reactions Z-Julio C [Azithromycin] Flushing, Itching and Rash Family History Problem Relation Name Age of Onset Thyroid Disorder Mother Seizures Mother Other (unknown) Father No Known Problems Brother Thyroid Disorder Grandmother (Maternal) Hyperlipidemia Grandmother (Maternal) Heart disease Grandmother (Maternal) Dementia Grandfather (Maternal) Family Status Relation Status Mo Alive Fa Other Bro Alive MGMA MGFA Social History Socioeconomic History Marital status: Spouse name: Not on file Number of children: Not on file Years of education: Not on file Highest education level: Not on file Occupational History Not on file Tobacco Use Smoking status: Never Smokeless tobacco: Never Vaping Use Vaping status: Never Used Substance and Sexual Activity Alcohol use: Yes Comment: occ Drug use: Never Sexual activity: Not on file Comment: Mirena 09/22/20 Other Topics Concern Not on file Social History Narrative Not on file Social Determinants of Health Financial Resource Strain: Low Risk (03/19/2024) Financial Resource Strain Do you have any trouble paying for your medications, or do you think you might in the future? (Adult - for ages 18 years and over): No Does your family have trouble paying for medicine? (Household - for ages 0-17 years): Not on file Food Insecurity: No Food Insecurity (03/19/2024) Food Insecurity Do you need food for this week? (Adult - for ages 18 years and over): No Are you able to get enough food for your family? (Household - for ages 0-17 years): Not on file Does your family need food this week? (Household - for ages 0-17 years): Not on file Do you always have enough food for your family? (Household - for ages 0-17 years): Not on file Transportation Needs: No Transportation Needs (03/19/2024) Transportation Needs Do you have trouble getting a ride to medical visits or work? (Adult - for ages 18 years and over):Not on file Does your family have a hard time getting a ride to doctors visits? (Household - for ages 0-17 years): Not on file Has lack of transportation kept you from medical appointments, meetings, work, or from getting things needed for daily living? Check all that apply. (Adult - for ages 18 years and over): No Do you (or your family) have trouble finding or paying for a ride (transportation)? (Household - for ages 0-17 years): Not on file Social Connections: Socially Integrated (03/19/2024) Social Connections How often do you feel lonely or isolated from those around you? (Adult - for ages 18 years and over): Never Housing Stability: Low Risk (03/19/2024) Housing Stability Do you currently live in a prison or have no steady place to sleep at night? (Adult - for ages 18 years and over): No Do you think you are at risk of becoming homeless? (Adult - for ages 18 years and over): Not on file Does your family worry about paying for your home or becoming homeless? (Household - for ages 0-17 years): Not on file Are you homeless or worried that you might be in the future? (Adult - for ages 18 years and over): No Are you (or your family) homeless or worried that you might be in the future? (Household - for ages0-17 years): Not on file Review of Systems Constitutional: Negative for activity change, appetite change, chills, diaphoresis, fatigue, fever and unexpected weight change. HENT: Positive for congestion and postnasal drip. Eyes: Negative for visual disturbance. Respiratory: Positive for cough (occ), chest tightness and shortness of breath. Negative for wheezing. Cardiovascular: Negative for chest pain, palpitations and leg swelling. Gastrointestinal: Negative for abdominal distention, abdominal pain, constipation, diarrhea, nauseaand vomiting. Endocrine: Negative. Genitourinary: Negative for menstrual problem. Musculoskeletal: Negative for arthralgias. Allergic/Immunologic: Positive for environmental allergies. Neurological: Negative for dizziness, weakness, light-headedness and headaches. Psychiatric/Behavioral: Positive for dysphoric mood (mild depression). Negative for agitation, behavioral problems and sleep disturbance. The patient is nervous/anxious. Objective BP 118/78 | Pulse 86 | Temp 36.3 C (97.3 F) (Tympanic) | Resp 18 | Ht 1.549 m (5' 1") | Wt 74.4kg (164 lb) | SpO2 97% | BMI 30.99 kg/m | BSA 1.79 m Physical Exam Constitutional: General: She is not in acute distress. Appearance: Normal appearance. She is not ill-appearing, toxic-appearing or diaphoretic. HENT: Head: Normocephalic and atraumatic. Ears: Comments: Fluid bulging TMs Nose: Nose normal. Eyes: Extraocular Movements: Extraocular movements intact. Cardiovascular: Rate and Rhythm: Normal rate and regular rhythm. Pulses: Normal pulses. Heart sounds: Normal heart sounds. No murmur heard. Pulmonary: Effort: Pulmonary effort is normal. No respiratory distress. Breath sounds: No stridor. No wheezing, rhonchi or rales. Chest: Chest wall: No tenderness. Abdominal: Palpations: Abdomen is soft. Musculoskeletal: General: No tenderness. Normal range of motion. Cervical back: Normal range of motion. Right lower leg: No edema. Left lower leg: No edema. Lymphadenopathy: Cervical: No cervical adenopathy. Neurological: General: No focal deficit present. Mental Status: She is alert and oriented to person, place, and time. Cranial Nerves: No cranial nerve deficit. Psychiatric: Behavior: Behavior normal. Comments: Mild anixety ASSESSMENT/PLAN: Physical exam, annual (Primary) - LIPID PANEL WITH DIRECT LDL IF TG IS HIGH; Future; Expected date: 03/19/2024 - HEMOGLOBIN A1C; Future; Expected date: 03/19/2024 - COMPREHENSIVE METABOLIC PANEL; Future; Expected date: 03/19/2024 - CBC WITH WBC DIFFERENTIAL; Future; Expected date: 03/19/2024 HTN, goal below 140/90 - LIPID PANEL WITH DIRECT LDL IF TG IS HIGH; Future; Expected date: 03/19/2024 - COMPREHENSIVE METABOLIC PANEL; Future; Expected date: 03/19/2024 - CBC WITH WBC DIFFERENTIAL; Future; Expected date: 03/19/2024 Intermittent asthma with reliever use up to twice per week without complication Major depressive disorder, recurrent, moderate (HCC) LUCY (generalized anxiety disorder) Vaccine for viral hepatitis Encounter for screening mammogram for malignant neoplasm of breast - MAMMOGRAM SCREENING MARYAM BILATERAL; Future; Expected date: 09/19/2024 Screening for depression - DEPRESSION SCREENING PERFORMED Gastroesophageal reflux disease without esophagitis Class 1 obesity without serious comorbidity with body mass index (BMI) of 30.0 to 30.9 in adult, unspecified obesity type - HEMOGLOBIN A1C; Future; Expected date: 03/19/2024 Cervical cancer screening Other orders - FLUoxetine HCl 40 MG Oral Capsule (PROzac); Take 1 Capsule by mouth in the morning. - FLUoxetine HCl 40 MG Oral Capsule (PROzac); Take 1 Capsule by mouth in the morning. - Budesonide-Formoterol Fumarate 160-4.5 MCG/ACT Inhalation Aerosol (Symbicort); Inhale 2 Puffs by mouth in the morning and 2 Puffs before bedtime. - Montelukast Sodium 10 MG Oral Tablet (Singulair); Take 1 Tablet by mouth in the morning. Check-out note: Mammogram Labs today Cont meds Singulair to resume Discussed with patient: -HEALTH PROMOTION: Adequate sleep (8-10 hours/night), regular exercise, balanced diet, dental care,limiting sedentary activities (TV, computer, Internet) -MENTAL HEALTH: Discuss feelings with an someone that they can trust -INJURY PREVENTION: Driving Safety, Seat Belts, Sun Safety, No Weapons, Conflict Resolution, Personal Safety -SUBSTANCE ABUSE: Tobacco, Drugs, Alcohol Shamar Dowell MD documented in this encounter Nursing Notes * Daphne Vo LPN - 03/19/2024 7:35 AM EDT The patient has been properly identified by confirmation of name and date of . Chief Complaint Patient presents with Physical-Exam Wellness form for Insurance Needs multiple medication refills States she has no concerns today documented in this encounter Plan of Treatment Upcoming Encounters Date Type Department Care Team (Late st Contact Info) Description 09/21/2024 7:20 AM EST Office Visit [facility] [address] [place] [facility] [place] [address] Shamar Dowell MD [address] [place] [facility] [place] [address] Pending Results Name Type Priority Associated Diagnoses Date /Time LIPID PANEL WITH DIRECT LDL IF TG IS HIGH Lab Routine Physical exam, annual HTN, goal below 140/90 03/19/2024 8:20 AM EDT HEMOGLOBIN A1C Lab Routine Physical exam, annual Class 1 obesity without serious comorbidity with body mass index (BMI) of 30.0 to 30.9 in adult, unspecified obesity type 03/19/2024 8:20 AM EDT COMPREHENSIVE METABOLIC PANEL Lab Routine Physical exam, annual HTN, goal below 140/90 03/19/2024 8:20 AM EDT CBC WITH WBC DIFFERENTIAL Lab Routine Physical exam, annual HTN, goal below 140/90 03/19/2024 8:20 AM EDT TSH WITH FREE T4 IF INDICATED Lab Routine Family history of thyroid disease Weight gain 03/19/2024 8:20 AM EDT Scheduled Orders Name Type Priority Associated Diagnoses Orde r Schedule MAMMOGRAM SCREENING MARYAM BILATERAL Medical Imaging Routine Encounter for screening mammogram for malignant neoplasm of breast Expected: 09/19/2024, Expires: 04/19/2025 LIPID PANEL WITH DIRECT LDL IF TG IS HIGH Lab Routine Physical exam, annual HTN, goal below 140/90 Expected: 03/19/2024, Expires: 03/19/2025 HEMOGLOBIN A1C Lab Routine Physical exam, annual Class 1 obesity without serious comorbidity with body mass index (BMI) of 30.0 to 30.9 in adult, unspecified obesity type Expected: 03/19/2024 (Approximate), Expires: 03/19/2025 COMPREHENSIVE METABOLIC PANEL Lab Routine Physical exam, annual HTN, goal below 140/90 Expected: 03/19/2024 (Approximate), Expires: 03/19/2025 CBC WITH WBC DIFFERENTIAL Lab Routine Physical exam, annual HTN, goal below 140/90 Expected: 03/19/2024 (Approximate), Expires: 03/19/2025 TSH WITH FREE T4 IF INDICATED Lab Routine Family history of thyroid disease Weight gain Expected: 03/19/2024 (Approximate), Expires: 03/19/2025 Health Maintenance Due Date Last Done Comments Pneumococcal Vaccine: Pediatrics (0 to 5 Years) and At-Risk Patients (6 to 64 Years) (1 of 2 - PCV) 1988 Albumin/Creatinine Ratio 2000 HPV/Co-Test 2012 GFR 11/30/2021 11/30/2020, 10/2019, 07/25/2020 *SPIROMETRY ONCE FOR ASTHMA-ADULT 07/25/2022 Mammogram 2022 COVID-19 Vaccine ( season) 2023 09/10/2020, 08/20/2020 Cervical Cancer Screening 09/05/2023 Pap Smear 09/05/2023 09/05/2020 Diabetes Screening 12/01/2023 11/30/2020, 1 10/03/2019, 07/25/2020 Influenza Vaccine (FLU shot) (#1) 2024 07/24/2022, 06/15/2021, 06/15/2021, Additional history exists HIV Screening 08/31/2024 Postponed from 1997 (Patient Declined After Education) Hepatitis C Screening 08/31/2024 Postpo stas from 2000 (Patient Declined After Education) Depression Monitoring 03/19/2025 03/19/2024 Lipid Panel 11/30/2025 11/30/2020 DTaP,Tdap,and Td Vaccines (2 - Td or Tdap) 06/12/2029 06/12/2019 HPV (Gardasil) Vaccine Aged Out No lo nger eligible based on patient's age to complete this topic Hepatitis B Vaccine Discontinued MENINGOCOCCAL (MENACTRA/MENVEO) Aged Out No longer eligible based on patient's age to complete this topic documented as of this encounter Medical Devices Not on filedocumented as of this encounter Visit Diagnoses Diagnosis Physical exam, annual- Primary Routine general medical examination at a health care facility HTN, goal below 140/90 Unspecified essential hypertension Intermittent asthma with reliever use up to twice per week without complication Major depressive disorder, recurrent, moderate (HCC) Major depressive disorder, recurrent episode, moderate LUCY (generalized anxiety disorder) Generalized anxiety disorder Vaccine for viral hepatitis Need for prophylactic vaccination and inoculation against viral hepatitis Encounter for screening mammogram for malignant neoplasm of breast Other screening mammogram Screening for depression Gastroesophageal reflux disease without esophagitis Esophageal reflux Class 1 obesity without serious comorbidity with body mass index (BMI) of 30.0 to 30.9 in adult, unspecified obesity type Cervical cancer screening Screening for malignant neoplasm of the cervix Family history of thyroid disease Family history of other endocrine and metabolic diseases Weight gain Abnormal weight gain documented in this encounter Care Teams Retort Load Expediter Relationship Specialty Start Date End Date Shamar Dowell MD [address] [place] [address] PCP - General Internal Medicine 03/18/24 documented as of this encounter
--- OUTSIDE RECORDS SUMMARY | 2024-07-19 06:30 | External Medical Summary ---
Author Name Unknown Address Unknown Organization [id number][place] [facility] [place] [address] [place] [id number] Laboratory Report Ordering Provider Test Date Status ELIO EASTON 03/19/2024 08:20:51 Final Observation Date Value Abnormality Reference (Units ) Status HbA1C 03/19/2024 08:20:51 5.7 Above high normal 4. 0-5.6 (%) Final The use of HbA1c to monitor glycemic status is based on normal hemoglobin and HbA composition. This test should not be used in patients with abnormal hemoglobin that affects the half life of the red blood cell or the in vivo glycation rates. Glucose, estimated average 03/19/2024 08:20:51 117 <126 (mg/dL) Final Performing Location [place] [facility] [place] [address] [place] [id number]
--- OUTSIDE RECORDS SUMMARY | 2024-07-19 06:30 | External Medical Summary ---
Author Name Unknown Address Unknown Organization [id number]:LAB[facility]ORY [facility] [place] [address] [facility] [place] [address] Laboratory Report Ordering Provider Test Date Status ELIO EASTON 03/19/2024 08:20:51 Final Observation Date Value Abnormality Reference (Units ) Status Triglyceride 03/19/2024 08:20:51 143 <=174 ( mg/dL) Final Triglyceride Reference Range s (mg/dL):
<150 Acceptable
150-174 Borderline high
175-499 High
>=500 Very high Cholesterol 03/19/2024 08:20:51 204 Above high normal <200 (mg/dL) Final Total Cholesterol Reference Ranges (mg/dL):
<200 Desirable
200-239 Borderline high
>=240 High HDL 03/19/2024 08:20:51 51 >49 (mg/dL ) Final HDL Cholesterol Reference Ra nges (mg/dL):
>=60 High (Desirable)
<50 Low (Undesirable) For Females
<40 Low (Undesirable) For Males NON-HDL CHOLESTEROL 03/19/2024 08:20:51 153 <=159 (mg/dL) Final Non-HDL Cholesterol Referenc e Range (mg/dL):
<100 Target level for high risk ASCVD patient
<130 Optimal for general population
130-159 Near optimal for general population
160-189 Borderline High
190-219 High
>=220 Very High LDL, (calculated) 03/19/2024 08:20:51 124 <= 129 (mg/dL) Final LDL Cholesterol Reference Ra nges (mg/dL):
<70 Target level for high risk ASCVD patient
<100 Optimal for general population
100-129 Near optimal for general population
130-159 Borderline high
160-189 High
>=190 Very high Performing Location LABORATORY [facility] [place] - [address] [place] [address]
--- OUTSIDE RECORDS SUMMARY | 2024-07-19 06:30 | External Medical Summary | Summary of Care ---
Author Name Unknown Organization [facility] Address [address] [place] [address] Phone [phone] Care Team Providers Care Chimney Repairer Name Role Phone Shamar Dowell MD Primary Care Provider [phone] Reason for Visit * Reason Comments Outpatient Testing Encounter Details Date Type Department Care Team (Late st Contact Info) Description 03/19/2024 8:20 AM EDT Laboratory Laboratory, [place] [address] [place] [address] [place] [address] [place] [address] Physical exam, annual; HTN, goal below 140/90; Class 1 obesity without serious comorbidity with body mass index (BMI) of 30.0 to 30.9 in adult, unspecified obesity type; Family history of thyroid disease; Weight gain; Encounter for long-term (current) use of medications; Encounter for long-term (current) use of other medications Allergies Active Allergy Reactions Criticality Noted Date Comments Azithromycin Flushing,Itching,Rash 06/12/2020 documented as of this encounter (statuses as of 03/19/2024) Medications Medication Sig Dispensed Refills Start Date End Date Status Vitamin D 125 MCG (5000 UT) Oral Capsule Take by mouth. Active Mirena (52 MG) 20 MCG/24HR Intrauterine Intrauterine Device (Levonorgestrel) Insert into uterus . Active Fluticasone Propionate 50 MCG/ACT Nasal SuspensionIndicatio ns:SOB (shortness of breath),Acute URI,Mild persistent asthma with exacerbation Administer into each nostril 2 Sprays in the morning. 1 Each 3 01/09/2022 Active amLODIPine Besylate 10 MG Oral Tablet (Norvasc)Indication s:HTN, goal below 140/90 TAKE ONE TABLET BY MOUTH EVERY MORNING 90 Tablet 3 07/08/2023 07/07/2024 Active Albuterol Sulfate HFA 108 (90 Base) MCG/ACT Inhalation Aerosol SolutionIndications :SOB (shortness of breath),Acute URI,Mild persistent asthma with exacerbation INHALE 2 PUFFS BY MOUTH EVERY 6 HOURS NEEDED FOR WHEEZING OR DYSPNEA 54 g 1 12/26/2023 Active Pantoprazole Sodium 40 MG Oral Tablet Delayed Release (Protonix)Indicatio ns:Gastroesophageal reflux disease without esophagitis TAKE ONE TABLET BY MOUTH EVERY MORNING 90 Tablet 1 01/12/2024 Active FLUoxetine HCl 40 MG Oral Capsule (PROzac) Take 1 Capsule by mouth in the morning. 30 Capsule 03/19/2024 Active FLUoxetine HCl 40 MG Oral Capsule (PROzac) Take 1 Capsule by mouth in the morning. 90 Capsule 3 03/19/2024 Active Budesonide-Formoter ol Fumarate 160-4.5 MCG/ACT Inhalation Aerosol (Symbicort) Inhale 2 Puffs by mouth in the morning and 2 Puffs before bedtime. 30.6 g 3 03/19/2024 Active Montelukast Sodium 10 MG Oral Tablet (Singulair) Take 1 Tablet by mouth in the morning. 90 Tablet 3 03/19/2024 Active documented as of this encounter (statuses as [...] mRNA, LNP-s, No Pre serve, 2-Dose Series (ZOCKO) 09/10/2020,08/20/2020 Seasonal Influenza, PF, 6 M & above, IM , (FluLaval or Fluzone) 07/24/2022,06/09/2020 Seasonal Influenza, Quadrivalent, No Preserve, I M 06/15/2021,06/15/2021 TDAP (age 10 and older)(Boostrix) 06/12/2019 documented as of this encounter Social History Tobacco Use Types Packs/Day Years Used Date Smoking Tobacco: Never Smokeless Tobacco: Never Alcohol Use Standard Drinks/Week Comments Yes 0 [...] on file documented as of this encounter Plan of Treatment Upcoming Encounters Date Type Department Care Team (Late st Contact Info) Description 09/21/2024 7:20 AM EST Office Visit [facility] [address] [place] [address] Shamar Dowell MD [address] [place] [address] Pending Results Name Type Priority Associated Diagnoses [...] disease Weight gain 03/19/2024 8:20 AM EDT CBC Lab Routine Physical exam, annual HTN, goal below 140/90 03/19/2024 8:20 AM EDT DIFFERENTIAL, AUTOMATED Lab Routine Physical exam, annual HTN, goal below 140/90 03/19/2024 8:20 AM EDT Health Maintenance Due Date Last Done Comments Pneumococcal Vaccine: Pediatrics (0 to 5 Years) and At-Risk Patients (6 to 64 Years) (1 of 2 - PCV) 1988 Albumin/Creatinine Ratio 2000 HPV/Co-Test 2012 GFR 11/30/2021 11/30/2020, 12/10/2019, 07/25/2020 *SPIROMETRY ONCE FOR ASTHMA-ADULT 07/25/2022 Mammogram 2022 COVID-19 Vaccine ( - season) 2023 09/10/2020, 08/20/2020 Cervical Cancer Screening [...] this encounter Visit Diagnoses Diagnosis Physical exam, annual Routine general medical examination at a health care facility HTN, goal below 140/90 Unspecified essential hypertension Class 1 obesity without serious comorbidity with body mass index (BMI) of 30.0 to 30.9 in adult, unspecified obesity type Family history of thyroid disease Family history of other endocrine and metabolic diseases Weight gain Abnormal weight gain Encounter for long-term (current) use of medications Encounter for long-term (current) use of other medications Encounter for long-term (current) use of other medications documented in this encounter Care Teams Chimney Repairer Relationship Specialty Start Date End Date Shamar Dowell MD [address] [place] [address] PCP - General Internal Medicine 03/18/24 documented as of this encounter
--- OUTSIDE RECORDS SUMMARY | 2024-07-19 06:30 | External Medical Summary ---
Author Name Unknown Address Unknown Organization K01:[place] [facility] [place] [address] [place] [address] Laboratory Report Ordering Provider Test Date Status ELIO EASTON 03/19/2024 08:20:51 Final Observation Date Value Abnormality Reference (Units ) Status BUN 03/19/2024 08:20:51 10 6-20 (mg/dL) Final Creatinine 03/19/2024 08:20:51 0.9 0.5-1.0 (mg/dL) Final Glomerular filtration rate/1.73 sq M.predicted [Volume Rate/Area] in Serum, Plasma or Blood by Creatinine-based formula (CKD-EPI) 03/19/2024 08:20:51 86 >=60 (mL/min) Final eGFR is calculated based on the CKD-EPI 2020 equation. Sodium 03/19/2024 08:20:51 137 135-146 (m mol/L) Final Potassium 03/19/2024 08:20:51 4.2 3.5-5.1 (m mol/L) Final Cl 03/19/2024 08:20:51 102 98-107 (mm ol/L) Final CO2 03/19/2024 08:20:51 24 22-32 (mmo l/L) Final Anion gap 03/19/2024 08:20:51 11 7-15 (mmol /L) Final Glucose 03/19/2024 08:20:51 95 70-120 (mg /dL) Final Albumin 03/19/2024 08:20:51 4.2 3.8-5.0 (g /dL) Final AST (Aspartate aminotransferase) 03/19/2024 08:20:51 18 10-35 (U/L) Fin al Alk Phos 03/19/2024 08:20:51 131 Above high normal 35 -130 (U/L) Final Bilirubin, Total 03/19/2024 08:20:51 0.2 <=1 .2 (mg/dL) Final Calcium 03/19/2024 08:20:51 9.3 8.4-10.2 ( mg/dL) Final Protein 03/19/2024 08:20:51 6.8 6.0-8.3 (g /dL) Final ALT (Alanine aminotransferase) 03/19/2024 08:20:51 14 10-35 (U/L) Roberto zelaya Performing Location [facility] [place] [address] [facility] [address]
--- OUTSIDE RECORDS SUMMARY | 2024-07-19 06:30 | External Medical Summary | Summary of Care ---
Author Name Unknown Organization [facility] Address [address] [place] [address] Phone [phone] Care Team Providers Care Media Intern Name Role Phone Shamar Dowell MD Primary Care Provider [phone] Reason for Visit * Reason Comments Medication Refill Encounter Details Date Type Department Care Team ([facility] st Contact Info) Description 06/26/2024 Refill [facility] [address] [place] [address] Trinh Whelan PA-C [address] [place] [address] HTN, goal below 140/90 Allergies Active Allergy Reactions Criticality Noted Date Comments Azithromycin Flushing,Itching,Rash 06/12/2020 documented as of this encounter (statuses as of 06/26/2024) Medications Medication Sig Dispensed Refills Start Date End Date Status Vitamin D 125 MCG (5000 UT) Oral Capsule Take by mouth. Active Mirena (52 MG) 20 MCG/24HR Intrauterine Intrauterine Device (Levonorgestrel) Insert into uterus . Active Fluticasone Propionate 50 MCG/ACT Nasal SuspensionIndicati ons:SOB (shortness of breath),Acute URI,Mild persistent asthma with exacerbation Administer into each nostril 2 Sprays in the morning. 1 Each 3 01/09/2022 Active Albuterol Sulfate HFA 108 (90 Base) MCG/ACT Inhalation Aerosol SolutionIndication s:SOB (shortness of breath),Acute URI,Mild persistent asthma with exacerbation INHALE 2 PUFFS BY MOUTH EVERY 6 HOURS NEEDED FOR WHEEZING OR DYSPNEA 54 g 1 12/26/2023 Active Pantoprazole Sodium 40 MG Oral Tablet Delayed Release (Protonix)Indicati ons:Gastroesophage al reflux disease without esophagitis TAKE ONE TABLET BY MOUTH EVERY MORNING 90 Tablet 1 01/12/2024 Active FLUoxetine HCl 40 MG Oral Capsule (PROzac) Take 1 Capsule by mouth in the morning. 30 Capsule 03/19/2024 Active FLUoxetine HCl 40 MG Oral Capsule (PROzac) Take 1 Capsule by mouth in the morning. 90 Capsule 3 03/19/2024 Active Budesonide-Formote rol Fumarate 160-4.5 MCG/ACT Inhalation Aerosol (Symbicort) Inhale 2 Puffs by mouth in the morning and 2 Puffs before bedtime. 30.6 g 3 03/19/2024 Active Montelukast Sodium 10 MG Oral Tablet (Singulair) Take 1 Tablet by mouth in the morning. 90 Tablet 3 03/19/2024 Active amLODIPine Besylate 10 MG Oral Tablet (Norvasc)Indicatio ns:HTN, goal below 140/90 TAKE ONE TABLET BY MOUTH EVERY MORNING 90 Tablet 3 06/26/2024 5 Active amLODIPine Besylate 10 MG Oral Tablet (Norvasc)Indicatio ns:HTN, goal below 140/90 TAKE ONE TABLET BY MOUTH EVERY MORNING 90 Tablet 3 07/08/2023 4 Discontinue d(Refill) documented as of this encounter (statuses as of 06/26/2024) Active Problems Problem Noted Date Diagnosed Date Gastroesophageal reflux disease without esophagi tis 03/19/2024 Major depressive disorder, recurrent, moderate 0 02/06/2023 LUCY (generalized anxiety disorder) 12/06/2020 Intermittent asthma with rel iever use up to twice per week without complication 07/25/2020 HTN, goal below 140/90 07/25/2020 documented as of this encounter (statuses as of 06/26/2024) Immunizations Name Administration Dates Next Due COVID-19 mRNA, LNP-s, No Pre serve, 2-Dose Series (Seiratherm) 09/10/2020,08/20/2020 Seasonal Influenza, PF, 6 M & [...] Answer Date Recorded PHQ Adult Total Score 5 03/19/2024 Hunger Vital Sign Answer Date Recorded Within [...] on file documented as of this encounter Miscellaneous Notes * Telephone Encounter - Juan Zuleta RPh - 06/26/2024 11:16 AM EDT Signed Prescriptions: Disp Refills amLODIPine Besylate 10 MG Oral Tablet (Nor*90 Tab*3 Sig: TAKE ONE TABLET BY MOUTH EVERY MORNINGAuthorizing Provider: Tyson DOWELL User: JUAN ZULETA-- documented in this encounter Plan of Treatment Upcoming Encounters Date Type Department Care Team (Late st Contact Info) Description 09/21/2024 7:20 AM EST Office Visit [facility] [address] [place] [facility] [place] [address] [facility] Dowell [facility] [address] [facility] [address] Health Maintenance Due Date Last Done Comments Pneumococcal Vaccine: Pediatrics (0 to 5 Years) and At-Risk Patients (6 to 64 Years) (1 of 2 - PCV) 1988 Albumin/Creatinine Ratio 2000 HPV/Co-Test 2012 *SPIROMETRY ONCE FOR ASTHMA-ADULT 07/25/2022 Mammogram 2022 Cervical Cancer Screening 09/05/2023 Pap Smear 09/05/2023 09/05/2020 COVID-19 Vaccine ( season) 2024 09/10/2020, 08/20/2020 Influenza Vaccine (FLU shot) (#1) 2024 07/24/2022, 06/15/2021, 06/15/2021, Additional history exists HIV Screening 08/31/2024 Postponed from 1997 (Patient Declined After Education) Hepatitis C Screening 08/31/2024 Postpo stas from 2000 (Patient Declined After Education) Depression Monitoring 03/19/2025 03/19/2024 GFR 03/19/2025 03/19/2024, 04/0 09/2020, 08/02/2020, Additional history exists Diabetes Screening 03/19/2027 03/19/2024, 0 03/19/2024, 11/30/2020, Additional history exists Lipid Panel 03/19/2029 03/19/2024, 11/30/2020 DTap/Tdap Vaccines (2 - Td or Tdap) 06/12/2029 06/12/2019 HPV (Gardasil) Vaccine Aged Out No lo nger eligible based on patient's age to complete this topic Hepatitis B Vaccine Discontinued MENINGOCOCCAL (MENACTRA/MENVEO) Aged Out No longer eligible based on patient's age to complete this topic documented as of this encounter Medical Devices Not on filedocumented as of this encounter Visit Diagnoses Diagnosis HTN, goal below 140/90 Unspecified essential hypertension documented in this encounter Care Teams Media Intern Relationship Specialty Start Date End Date Shamar Dowell MD [address] [place] [address] PCP - General Internal Medicine 03/18/24 documented as of this encounter
--- OUTSIDE RECORDS SUMMARY | 2024-07-19 06:30 | External Medical Summary ---
Author Name Unknown Address Unknown Organization K01:[place] [facility] [place] [address] [facility] [address] Laboratory Report Ordering Provider Test Date Status HERISHIRAELIO 03/19/2024 08:20:51 Final Observation Date Value Abnormality Reference (Units ) Status TSH 03/19/2024 08:20:51 1.57 0.27-4.20 (uIU/mL) Final Performing Location [facility] [address] [facility] [address]
--- OUTSIDE RECORDS SUMMARY | 2024-07-19 06:30 | External Medical Summary | Summary of Care ---
Author Name Unknown Organization [facility] Address [address] [place] [address] Phone [phone] Care Team Providers Care Airline Dispatcher Name Role Phone Shamar Dowell MD Primary Care Provider [phone] Reason for Visit * Reason Comments Medication Refill Encounter Details Date Type Department Care Team (Late st Contact Info) Description 07/05/2024 Refill [facility] [address] [place] [address] Trinh Whelan PA-C [address] [place] [address] Encounter for long-term (current) drug use*; Gastroesophageal reflux disease without esophagitis Allergies Active Allergy Reactions Criticality Noted Date Comments Azithromycin Flushing,Itching,Rash 06/12/2020 documented as of this encounter (statuses as of 07/06/2024) Medications Medication Sig Dispensed Refills Start Date [...] OR DYSPNEA 54 g 1 12/26/2023 Active FLUoxetine HCl 40 MG Oral Capsule [...] MORNING 90 Tablet 3 06/26/2024 5 Active Pantoprazole Sodium 40 MG Oral Tablet Delayed Release (Protonix)Indicati ons:Gastroesophage al reflux disease without esophagitis TAKE ONE TABLET BY MOUTH EVERY MORNING 90 Tablet 1 07/06/2024 Active Pantoprazole Sodium 40 MG Oral Tablet Delayed Release (Protonix)Indicati ons:Gastroesophage al reflux disease without esophagitis TAKE ONE TABLET BY MOUTH EVERY MORNING 90 Tablet 1 01/12/2024 4 Discontinue d(Refill) documented as of this encounter (statuses as of 07/06/2024) Active Problems Problem Noted Date Diagnosed Date Gastroesophageal reflux disease without esophagi tis 03/19/2024 Major depressive disorder, recurrent, moderate 0 02/06/2023 LUCY (generalized anxiety disorder) 12/06/2020 Intermittent asthma with rel iever use up to twice per week without complication 07/25/2020 HTN, goal below 140/90 07/25/2020 documented as of this encounter (statuses as of 07/06/2024) Immunizations Name Administration Dates Next Due COVID-19 mRNA, LNP-s, No Pre serve, 2-Dose Series (BrandBoards) 09/10/2020,08/20/2020 Seasonal Influenza, PF, 6 M & [...] encounter Miscellaneous Notes * Telephone Encounter - Rosaline Arshad RPh - 07/06/2024 8:55 AM ESTSigned Prescriptions: Disp Refills Pantoprazole Sodium 40 MG Oral Tablet Elvira*90 Tab*1 Sig: TAKE ONE TABLET BY MOUTH EVERY MORNINGAuthorizing Provider: TRINH WHELAN User: ROSALINE ARSHAD * Telephone Encounter - Rosaline Arshad RPh - 07/06/2024 8:53 AM EST Per refill protocol patient needs magnesium and vitamin B-12 labs on file within the past 2 years while using PPIs. Lab work ordered. Patient may obtain with next routine labs. Thank you, Rosaline Arshad PharmD Clinical Pharmacist [facility] [phone] 07/06/2024, 8:55 AM documented in this encounter Plan of Treatment Upcoming Encounters Date Type Department Care Team (Late st Contact Info) Description 09/21/2024 7:20 AM EST Office Visit [facility] [place] [facility] [place] [address] [address] Shamar Dowell MD [address] [place] [address] Scheduled Orders Name Type Priority Associated Diagnoses Orde r Schedule MAGNESIUM Lab Routine Encounter for long-term (current) drug use Expected: 09/09/2024, Expires: 07/06/2025 VITAMIN B12 Lab Routine Encounter for long-term (current) drug use Expected: 09/09/2024, Expires: 07/06/2025 Health Maintenance Due Date Last Done Comments [...] as of this encounter Visit Diagnoses Diagnosis Encounter for long-term (current) drug use- Primary Encounter for long-term (current) use of other medications Gastroesophageal reflux disease without esophagitis Esophageal reflux documented in this encounter Care Teams Airline Dispatcher Relationship Specialty Start Date End Date Shamar Dowell MD [address] [place] [address] PCP - General Internal Medicine 03/18/24 documented as of this encounter
--- OUTSIDE RECORDS SUMMARY | 2024-07-19 06:30 | External Medical Summary ---
Author Name Unknown Address Unknown Organization K01:[place] [facility] [place] [address] [place] [address] [place] [address] Laboratory Report Ordering Provider Test Date Status ELIO EASTON 03/19/2024 08:20:51 Final Observation Date Value Abnormality Reference (Units ) Status WBC, Total 03/19/2024 08:20:51 10.85 Above high normal 4.00-10.80 (K/uL) Final RBC 03/19/2024 08:20:51 5.12 3.85-5.15 (M/uL) Final Hemoglobin 03/19/2024 08:20:51 13.8 12.0-15.3 (g/dL) Final HCT 03/19/2024 08:20:51 44.1 36.0-45.2 (%) Final MCV 03/19/2024 08:20:51 86.1 81.5-97.5 (fL) Final MCH 03/19/2024 08:20:51 27.0 27.0-34.0 (pg) Final MCHC 03/19/2024 08:20:51 31.3 32.0-36.0 (g/dL) Final RDW 03/19/2024 08:20:51 14.7 11.5-15.5 (%) Final Platelets 03/19/2024 08:20:51 438 Above high normal 140-400 (K/uL) Final MPV 03/19/2024 08:20:51 9.9 6.6-11.1 (fL) Final Nucleated erythrocytes/100 leukocytes [Ratio] in Blood by Automated count 03/19/2024 08:20:51 0 <=0 (/100 WBCs) Final Performing Location [facility] [facility] [place] [address] [place] [address]
--- OUTSIDE RECORDS SUMMARY | 2024-07-19 06:30 | External Medical Summary ---
Author Name Unknown Address Unknown Organization K01:LABORATORY [facility] [place] [address] [place] [address] Laboratory Report Ordering Provider Test Date Status ELIO EASTON 03/19/2024 08:20:51 Final Observation Date Value Abnormality Reference (Units ) Status SYNC LEUKOCYTES IN BLOOD BY AUTOMATED COUNT 03/19/2024 08:20:51 10.85 Above high normal 4.00-10.80 (K/uL) Final Segs 03/19/2024 08:20:51 63.0 40.0-75.0 (%) Final Lymphs % 03/19/2024 08:20:51 24.1 18.0-42.0 (%) Final Monos 03/19/2024 08:20:51 6.3 1.0-11.0 (%) Final Eosinophils 03/19/2024 08:20:51 5.7 0.0-6.0 (%) Final Basos 03/19/2024 08:20:51 0.6 0.0-2.0 (%) Final Immature Granulocyte, Percent 03/19/2024 08:20:51 0.3 0.0-2.0 (%) Final Absolute Segs 03/19/2024 08:20:51 6.84 1.80-7.70 (K/uL) Final Lymphs, absolute 03/19/2024 08:20:51 2.61 1.00-4.80 (K/ul) Final Monos, Abs 03/19/2024 08:20:51 0.68 0.00-1.10 (K/uL) Final Eos, Abs 03/19/2024 08:20:51 0.62 0.00-0.70 (K/uL) Final Basos, Abs 03/19/2024 08:20:51 0.07 0.00-0.20 (K/uL) Final Immature Granulocytes, Number 03/19/2024 08:20:51 0.03 0.00-0.20 (K/uL) Final Performing Location LABORATORY [facility] [place] - [address] [facility] [address]
[2024-07-19] MEDS: ALBUTEROL HFA 8 GM INHALER INH PRN (08:09)
[2024-07-19] MEDS: amLODIPine BESYLATE 5 MG TAB PO SCH (08:26)
[2024-07-19] MEDS: MONTELUKAST SODIUM 10 MG TABLET PO SCH (08:26)
[2024-07-19] MEDS: FLUTICASONE/VILANTEROL 100/25MCG 14 PUFFS/INHALER INH SCH (08:27)
[2024-07-19] MEDS: FLUoxetine HCL 20 MG CAP PO SCH (08:27)
[2024-07-19] MEDS: PANTOprazole 40 MG TAB PO SCH (08:27)
--- NOTE | 2024-07-19 11:46 | Surgery Progress Note ---
Date of Service July 19, 2024 Assessment & Plan (1) Acute cholecystitis: Plan: Pt here with abdominal pain. Imaging shows multiple gallstones and a mildly dilated gallbladder with 1 possibly lodged in the neck. concerning for acute cholecystitis WBC 12. LFTs within normal limits Plan on lap aidan today with dr. kamara as surgical schedule allows Possible plan on dispo to home s/p procedure Admission and Anticipated Discharge Date Admission Date: July 18, 2024 Supervising Physician Co-Signing Physician Notes Patient seen and examined, labs and imaging reviewed, agree with above. 43-year-old female with cholelithiasis and cholecystitis. She was admitted overnight and placed on antibiotics. On exam she is afebrile with stable vitals, tender to palpation in the right upper quadrant with positive Silva sign. WBC 12 down from 14, LFTs normal. Ultrasound personally viewed and interpreted agree with the assessment of cholelithiasis with likely cholecystitis. Initially placed on the schedule today for Dr. Nayeli Norton, however she was notified of change in surgeon is agreeable to proceed with me for a laparoscopic cholecystectomy. Cholelithiasis with cholecystitis plan for laparoscopic cholecystectomy with possible cholangiogram risks discussed to include but not limited to bleeding, infection, retained stone, bile leak, open surgery, damage to surrounding structures including bile duct, need for future or more extensive surgery, failure to treat symptoms, and risks of anesthesia. Potential discharge later today or tomorrow Subjective Patient feeling better today. Admitted overnight for cholecystectomy today. No complaints. Physical Exam Physical Exam: awake/alert Gastrointestinal (Abdomen): Percussion/Palpation: + abdomen tender (mild ruq discomfort to palpation ) and abdomen soft Results & Data Vital Signs (Past 12 Hours) Vital Signs Temp Pulse Pulse Resp BP BP Pulse Ox 07/19/24 08:07 98.4 F 76 16 146/88 H 94 07/19/24 07:40 98.4 F 85 16 127/88 95 O2 Del Method 07/19/24 08:07 Room Air 07/19/24 07:40 Room Air PG Care Time/CCT Total # of Minutes Spent Total Time Spent with Patient: Total time spent is greater than 50% in coordination of care (as documented) at patient's floor/unit and/or counseling patient: Coding Level of Care Code 05239 SUB INP/OBS CARE 2/35MIN Diagnoses Acute cholecystitis K81.0
[2024-07-19] MEDS ORDERED: DEXAMETHASONE SOD INJ 4 MG/ML VIAL ONE (12:06)
[2024-07-19] MEDS ORDERED: LIDOCAINE 2% 2 ML VIAL/AMP(20MG/ML) INFIL ONE (12:06)
[2024-07-19] MEDS ORDERED: ROCURONIUM BROMIDE 10 MG/ML 5 ML VIAL IV ONE (12:06)
[2024-07-19] MEDS ORDERED: fentaNYL citrate PF 100 MCG/2 ML VIAL ONE ×2 (12:06→13:16)
[2024-07-19] MEDS ORDERED: ONDANSETRON INJ 2 MG/ML 2 ML VIAL ONE (12:06)
[2024-07-19] MEDS ORDERED: PROPOFOL IV EMULSION 10 MG/ML 20 ML VIAL IV ONE (12:06)
[2024-07-19] MEDS ORDERED: MIDAZOLAM HCL 1 MG/ML 2ML VIAL ONE (12:07)
--- NOTE | 2024-07-19 12:07 | Communication Note ---
Date of Service: July 19, 2024 Patient was seen and examined at bedside. Patient here for acute cholecystitis, is on Zosyn and n.p.o.n.p.o. Plan for lap aidan today. On exam: RUQ tender, patient denies further nausea and vomiting. Patient remains hemodynamically stable. Disposition: Per primary team. For detailed information on the patient, reported today's consultation note.
[2024-07-19] MEDS: LACTATED RINGER'S 1,000 ML IV SCH (12:22)
--- NOTE | 2024-07-19 12:36 | Anesthesiology Consultation ---
Date of Service July 19, 2024 Assessment & Plan Chart Review Chart Review: Acceptable Risk for Surgery Consults Requested none History Surgery Operation Date: 07/19/24 10:55 Proposed Procedures p Laparoscopic Cholecystectomy - Jimmy Florez DO, FACS Height/Weight Height: 5 ft 1 in Weight: 72.4 kg Allergies Allergy/AdvReac Type Severity Reaction Status Date / Time azithromycin Allergy Severe Rash Verified 07/18/24 20:22 Medications Home Medications Medication Instructions Recorded Confirmed Last Taken Albuterol (Ventolin) 2 puff inhalation QID 5 days ##0 09/05/08 07/18/24 07/18/24 13:00 amlodipine 10 mg tablet 10 mg PO DAILY 07/18/24 07/18/24 07/17/24 20:00 budesonide-formoterol HFA 160 1 puff inhalation BID 07/18/24 07/18/24 07/18/24 08:00 mcg-4.5 mcg/actuation aerosol inhaler fluoxetine 40 mg capsule 40 mg PO DAILY 07/18/24 07/18/24 07/17/24 20:00 montelukast 10 mg tablet 10 mg PO DAILY 07/18/24 07/18/24 07/17/24 20:00 pantoprazole 40 mg tablet,delayed 40 mg PO DAILY 07/18/24 07/18/24 07/17/24 20:00 release Active Medications Generic Name Dose Route Start Last Admin Trade Name Freq PRN Reason Stop Dose Admin Albuterol 2 puffs 07/19/24 09:00 07/19/24 08:09 Albuterol Hfa 8 Gm Inhaler INH 08/18/24 08:59 2 puffs QID PRN Administration sob/wheezing Amlodipine Besylate 10 mg 07/19/24 09:00 07/19/24 08:26 Amlodipine Besylate 5 Mg Tab PO 08/18/24 08:59 10 mg DAILY FLORIAN Administration Fluoxetine HCl 40 mg 07/19/24 09:00 07/19/24 08:27 Fluoxetine Hcl 20 Mg Cap PO 08/18/24 08:59 40 mg DAILY FLORIAN Administration Fluticasone/Vilanterol 1 puffs 07/19/24 09:00 07/19/24 08:27 Fluticasone/Vilanterol 100/25mcg 14 Puffs/Inhaler INH 08/18/24 08:59 1 puffs DAILY FLORIAN Administration Protocol Acetaminophen 1,000 mg in 100 mls @ 400 mls/hr 07/18/24 22:35 07/19/24 02:46 Ofirmev IV 07/21/24 22:34 Infused Q8H PRN Infusion Pain Potassium Chloride 20 meq/ 1,010 mls @ 80 mls/hr 07/19/24 01:00 07/19/24 11:52 Dextrose/Lactated Ringer's IV 07/19/24 13:37 0 mls/hr .[id number] ONE Infusion Piperacillin Sod/Tazobactam Sod 4.5 gm in 100 mls @ 25 mls/hr 07/19/24 02:00 07/19/24 11:51 Zosyn IV 07/29/24 01:59 0 mls/hr Q8H FLORIAN Infusion Protocol Lactated Ringer's 1,000 mls @ 15 mls/hr 07/19/24 12:30 07/19/24 12:22 Lr IV 07/20/24 12:29 0 mls/hr .Q24H FLORIAN Infusion Montelukast Sodium 10 mg 07/19/24 09:00 07/19/24 08:26 Montelukast Sodium 10 Mg Tablet PO 08/18/24 08:59 10 mg DAILY FLORIAN Administration Pantoprazole Sodium 40 mg 07/19/24 09:00 07/19/24 08:27 Pantoprazole 40 Mg Tab PO 08/18/24 08:59 40 mg DAILY FLORIAN Administration NPO Date Last Intake of Fluids: 07/18/24 Time Last Intake of Fluids: 23:00 Date Last Intake of Solids: 07/18/24 Time Last Intake of Solids: 12:00 Past Medical History Medical History GERD (gastroesophageal reflux disease) Hypertension Asthma Anxiety and depression Past Surgical History Surgical History History of dilatation and curettage Social History Smoking Status: Never smoker Do You Dip or Chew Tobacco: No Hx Alcohol Use: Yes Alcohol type: beer alcohol intake frequency: holidays/special occasions only Hx Substance Use: No Physical Exam Vital Signs Last Vital Signs Temp 37.1 C 07/19/24 12:05 Pulse 76 11/18/24 12:05 Resp 16 07/19/24 12:05 BP 146/88 H 07/19/24 12:05 Pulse Ox 94 07/19/24 12:05 O2 Del Method Room Air 07/19/24 12:05 Testing Laboratory Results 07/19/24 05:29 07/19/24 05:29 Urine Color Yellow 07/18/24 16:10 Urine Appearance Clear (Clear) 07/18/24 16:10 Urine pH 6.5 (4.5-7.5) 07/18/24 16:10 Ur Specific [place] 1.005 (1.000-1.030) 07/18/24 16:10 Urine Protein Negative (Negative) 07/18/24 16:10 Urine Glucose (UA) Negative (Negative) 07/18/24 16:10 Urine Ketones Negative (Negative) 07/18/24 16:10 Urine Nitrite Negative (Negative) 07/18/24 16:10 Ur Leukocyte Esterase Negative (Negative) 07/18/24 16:10
[2024-07-19] MEDS ORDERED: ATROPINE SULFATE 0.1 MG/ML 10ML SYR IV PRN (12:37)
[2024-07-19] MEDS ORDERED: ePHEDrine sulfate 50 MG/ML AMP IV PRN (12:37)
[2024-07-19] MEDS ORDERED: ONDANSETRON INJ 2 MG/ML 2 ML VIAL IV PRN (12:37)
[2024-07-19] MEDS ORDERED: PROMETHAZINE HCL 6.25 MG in SODIUM CHLORIDE 0.9% 50 ML IV PRN (12:37)
[2024-07-19] MEDS ORDERED: ALBUTEROL HFA 8 GM INHALER INH ONE (13:14)
[2024-07-19] MEDS ORDERED: SUGAMMADEX SODIUM 200 MG/2 ML VIAL IV ONE (13:32)
[2024-07-19] MEDS: BUPIVACAINE 0.5 % 5 MG/1 ML MPF 30ML VIAL ONE (14:10)
--- NOTE | 2024-07-19 14:12 | Operative Report ---
PG Post Operative Report Pre & Post Diagnosis Operation Date: 07/19/24 10:55 Pre-Op Diagnosis: Acute cholecystitis Post-Op Diagnosis: Acute cholecystitis, hydrops of the gallbladder I identified the patient and participated in the time-out.: Yes Procedure Operation Date: 07/19/24 10:55 Actual Procedures p Laparoscopic Cholecystectomy(Not Applicable) - Jimmy Florez DO, TASHA Surgeon Jimmy Florez DO, TASHA High Lift Operator Fabiana Chacon Estimated Blood Loss 15 Findings Consistent with Post-Op Diagnosis Gallbladder distended, moderate to severe cholecystitis. Aspirated with needle, hydrops of the gallbladder. Critical view of safety obtained, short cystic duct doubly clipped and divided. Artery doubly clipped and divided. Good hemostasis. Specimens Gallbladder Anesthesia Type General Complications none Disposition Accompanied Patient To Recovery: No Disposition: Recovery Room Indications 43-year-old female presented with signs symptoms of acute cholecystitis, plan for laparoscopic cholecystectomy with possible cholangiogram. The risks of the procedure were discussed, all questions were answered, and the patient agreed to proceed with surgery as planned. Description of Procedure The patient was properly identified, consented, and taken to the operating room where she was placed in the supine position. General endotracheal anesthesia was induced. SCDs and a safety belt were placed. Preoperative antibiotics were administered. The patient's abdomen was prepped and draped in the standard sterile fashion. A surgical timeout was performed and all parties were in agreement that this was the correct patient and procedure to be performed and we continued as planned. An incision was made superior and to the left of the umbilicus overlying the rectus muscle and the Veress needle was inserted. Saline drop test confirmed entry into the peritoneum. The abdomen was insufflated with carbon dioxide whic h the patient tolerated without incident. The abdomen was then entered using the Optiview technique and a 5 mm trocar. The laparoscope was inserted and no damage from initial trocar or Veress needle placement was noted, no gross abnormalities were noted within the 4 quadrants of the abdomen. An 11 mm port was placed in the subxiphoid position and two 5 mm ports were then placed in the right subcostal position. The patient was placed in reverse Trendelenburg position and rotated towards the left. The gallbladder was moderately to severely inflamed and quite distended. An aspiration needle was used to decompress the gallbladder to allow for my medical receptionist assistant to retract. The dome of the gallbladder was retracted towards the left upper quadrant and the infundibulum was retracted toward the right lower quadrant revealing Calot's triangle. Omental adhesions were taken down with electrocautery and blunt dissection peritoneal attachments were taken down with electrocautery and blunt dissection. The cystic duct and artery were circumferentially dissected. A window of safety was obtained showing the cystic duct entering the gallbladder with no aberrant structures noted. The cystic duct was quite short but we clearly identified that this was normal structure and into the gallbladder. The cystic duct and artery were doubly clipped and divided. The gallbladder was then lifted off the gallbladder fossa with electrocautery. The gallbladder was placed in an Endo Catch bag and removed through the subxiphoid port site. The right upper quadrant was irrigated and hemostasis was found to be good. 5 mm trochars were removed under direct visualization and the abdomen was allowed to collapse. The subsite port site fascia was closed with 0 Vicryl suture [id number] suture x 2 utilizing the Hermelindo-Flynn device prior to removal of the port. The wound was irrigated, and the skin of all ports was closed with 4-0 Monocryl subcuticular sutures. Dermabond was placed over the wounds. The patient was extubated in the operating room and taken to the PACU where she recovered without apparent incident. All sponge, instrument and needle counts were correct at the conclusion of the procedure. The patient tolerated the procedure well. The physician's medical receptionist assistant was present and scrubbed for the entirety of the case and was essential in positioning the patient, prepping and draping, retraction and exposure, driving the laparoscope, removal of the gallbladder, closure the incisions, and placement of the dressings. I attest to the content of the Intraoperative Record and any orders documented therein. Any exceptions are noted below.
[2024-07-19] MEDS: fentaNYL citrate PF 100 MCG/2 ML VIAL IV PRN (14:39)
--- NOTE | 2024-07-19 14:58 | Anesthesiology Progress Note ---
Date of Service July 19, 2024 Anesthesia Post Procedure Vital Signs Vital Signs: Temp Pulse Pulse Pulse Resp BP BP 07/19/24 12:05 37.1 C 76 16 07/19/24 08:07 36.9 C 76 16 146/88 H 07/19/24 07:40 36.9 C 85 16 07/18/24 22:35 36.9 C 74 18 154/97 H 07/18/24 22:35 07/18/24 22:35 36.9 C 74 18 154/97 H 07/18/24 22:00 79 18 132/80 07/18/24 20:48 80 07/18/24 20:00 36.8 C 82 20 137/103 H 07/18/24 18:00 77 22 153/105 H 07/18/24 16:07 86 07/18/24 16:00 87 20 197/96 H 07/18/24 15:40 36.5 C 96 H 19 150/99 H BP Pulse Ox Pulse Ox O2 Del Method O2 Del Method 07/19/24 12:05 146/88 H 94 Room Air 07/19/24 08:07 94 Room Air 07/19/24 07:40 127/88 95 Room Air 07/18/24 22:35 95 Room Air 07/18/24 22:35 95 Room Air 07/18/24 22:35 95 Room Air 07/18/24 22:00 96 Room Air 07/18/24 20:48 07/18/24 20:00 99 Room Air 07/18/24 18:00 97 Room Air 07/18/24 16:07 07/18/24 16:00 98 Room Air 07/18/24 15:40 95 Room Air Pain Intensity Right Upper Abdomen: Pain Intensity: 2 Transfer of Care Handoff Completed per policy Notes Mental Status: alert / awake / arousable and participated in evaluation Patient Amnestic to Procedure: Yes Nausea / Vomiting: adequately controlled Pain: adequately controlled Airway Patency, RR, SpO2: stable & adequate BP & HR: stable & adequate Hydration State: stable & adequate Anesthetic Complications: no major complications apparent
[2024-07-19] MEDS: HYDROmorphone INJ 2 MG/ML SYR/VIAL IV PRN (15:11)
[2024-07-19 16:15] VITALS: RESP 16
[2024-07-19] MEDS: oxyCODONE HCL IR 5 MG TAB (IMMEDIATE RELEASE) PO PRN (21:14)
[2024-07-20 06:30] LABS: Hematocrit (blood only) 38.5 % (37.0-47.0); Hemoglobin 12.7 g/dl (12.0-16.0); Mean Corpuscular Volume 84.8 fL (80.0-100.0); Mean Platelet Volume 9.8 fL (9.4-12.4); Platelet Count 409 K/uL (130-400); RDW Coefficient of Variation 14.5 % (11.5-14.5); RDW Standard Deviation 45.3 fL (36.4-46.3); Red Blood Count 4.54 M/uL (4.20-5.40); White Blood Count 18.26 K/ul (4.8-10.8)
[2024-07-20 07:01] LABS: Calcium 8.7 mg/dl (8.6-10.3); Creatinine Clr Calc Pharmacy 86.4 ml/min; Magnesium 1.9 mg/dl (1.7-2.4); Phosphorus 3.4 mg/dl (2.5-4.9); Potassium 4.2 mmol/L (3.5-5.1)
[2024-07-20 07:12] VITALS: BP 114/70; PULSE 86; TEMP 98.4; O2SAT 95
--- NOTE | 2024-07-20 07:52 | Surgery Progress Note ---
Date of Service July 20, 2024 Assessment & Plan (1) Acute cholecystitis: Plan: POD#1 laparoscopic cholecystectomy WBC 18, Hbg 12. Vitals stable and patient afebrile Expected post op discomfort noted, particularly at extraction site. pain manageable on prn regimen Otherwise tolerating clears, no nausea/vomiting. Will advance diet as tolerates Anticipate dispo to home today D/c instructions reviewed, f/u in office with Dr. Florez in 2 weeks time Admission and Anticipated Discharge Date Admission Date: July 18, 2024 Supervising Physician Co-Signing Physician Notes Patient seen and examined, labs reviewed, agree with above. POD #1 laparoscopic cholecystectomy. Doing well, pain improved. Little sore at extraction site. Afebrile, stable vitals. Tolerating diet. Abdomen soft, probably tender to palpation. WBC 18 from 12, other labs unremarkable. Plan to DC to home, follow-up in 2 weeks. Wound care instructions, activity restrictions, and return precautions given. Subjective Patient feeling okay this AM. Has more pronounced pain at the epigastric incision which is the gallbladder extraction site. Otherwise this has been manageable with prn pain meds. No nausea/vomiting. Says she was groggy for a long time after surgery yesterday. Physical Exam Physical Exam: awake/alert, no distress Gastrointestinal (Abdomen): Inspection/Auscultation: + abdominal surgical incision (c/d/i with dermabond, no signs of infection); abdomen not distended Percussion/Palpation: + abdomen tender (expected paddy incisional discomfort to palpation) and abdomen soft Results & Data Vital Signs (Past 12 Hours) Vital Signs Temp Pulse Resp BP BP Pulse Ox O2 Del Method 07/20/24 07:11 98.4 F 86 16 114/70 95 Room Air 07/20/24 03:34 98.2 F 83 16 123/76 123/76 93 Room Air 07/19/24 23:00 98.2 F 95 H 16 116/73 93 Room Air PG Care Time/CCT Total # of Minutes Spent Total Time Spent with Patient: Total time spent is greater than 50% in coordination of care (as documented) at patient's floor/unit and/or counseling patient: Coding Level of Care Code 50514 Post Operative Follow-Up Diagnoses Acute cholecystitis K81.0
[2024-07-20] MEDS: oxyCODONE HCL IR 5 MG TAB (IMMEDIATE RELEASE) PO PRN (08:08)
[2024-07-20] MEDS: INFLUENZA VACC TS2024-25(6m+)/PF (IIV3) 0.5mL Syr IM ONE (09:42)
--- NOTE | 2024-07-20 11:38 | Discharge Summary ---
Date of Service July 20, 2024 Admission HPI Per Admitting Provider Patient is a 43-year-old female who presented to the ED for concerns for abdominal pain. Patient states that for the last 2-3 days she's had persistent right upper quadrant abdominal pain. On occasion she states she has had gallbladder attacks in the past but they have been mild in nature and never lasted very long. She states that when she was in her 20s she had similar symptoms and was found to have gallstones however due to her she did not undergo surgery. She did follow up with her PCP regarding her gallstones after giving , however there was no acute cholecystics and her symptoms had ultimately subsided and she never perused surgery. She states prior to this, she has only had episodes of pain 1-2 times a year. However, since this past Friday she has had persistent pain after eating fast food the night before. States that the pain originally started in her epigastric area that has now moved into her RUQ and has been constant since. States the pain does now radiate into her back/shoulder blades. She has had associated nausea however no emesis. She otherwise denies new onset fevers, chills, CP or SOB. She was worked up in the ED and was found to have an elevated WBC at 14 along with US imaging with results of gallbladder wall thickening and gallstones. Patient also denies any previous abdominal surgeries. Principal Diagnosis acute cholecystitis Discharge Exam awake/alert, no distress Respiratory normal respiratory effort; no respiratory distress Cardiovascular Rate/Rhythm: regular rate Gastrointestinal (Abdomen) Inspection/Auscultation: + abdominal surgical incision (c/d/i with dermabond, no signs of infection); abdomen not distended Percussion/Palpation: + abdomen tender (expected paddy incisional discomfort to palpation) and abdomen soft Psychiatric Orientation: alert and oriented x 3 Discharge Data Allergies Allergy/AdvReac Type Severity Reaction Status Date / Time azithromycin Allergy Severe Rash Verified 07/18/24 20:22 Consultations 07/18/24 20:11 ED Decision to Admit Stat 07/18/24 22:35 Consult Hospitalist Routine Procedures Performed Operation Date: 07/19/24 10:55 Actual Procedures p Laparoscopic Cholecystectomy(Not Applicable) - Jimmy Florez DO, FACS Ordered Studies 07/18/24 16:28 US gallbladder Stat Hospital Course (1) Acute cholecystitis: This is a 43 yo female who presented to the [facility] ED on 07/18/24 with abdominal pain. Workup in the ED showed a WBC of [address] a/p concerning for acute cholecystitis . The patient was tender to palpation in the RUQ. Patient made NPO with IVF and booked for the OR. On 07/19/24 the patient went to the OR with Dr Florez for a Laparoscopic Cholecystectomy. The patient tolerated the procedure well, see operative report for full details. Post operatively the patient's diet was advanced, pain managed on prn meds, and incisions clean/dry/intact. On POD#1 07/20/24 the patient was deemed stable for discharge to home.SHe was given discharge instruction, follow up recommendations and return precautions, a prescription for oral pain medication. Total Time Total Time Spent Total Time Spent (In Minutes): 10 Discharge Plan Discharge Items Patient Disposition: Home - Self-Care Reason For Visit: ACUTE CHOLECYSTITIS Discharge Diagnosis: laparoscopic cholecystectomy Activity: Per Instructions section Lifting: No more than 10 pounds Bathing Comment: may shower; no soaking in tubs/pools x 2 weeks Exercise/Sports: Wait until after follow-up appointment Driving/Machine Use: no driving while taking narcotics for pain Non-emergency contact: Surgeon Call non-emergency contact if: you have any medication questions, your symptoms worsen, your pain is not controlled, your pain is unusual for you, you have a fever, your temperature is above 101.5, your wound has increased redness, your wound has increased drainage and your wound pain has increased Follow-up/Referrals: Jimmy Florez DO, FACS [Physician] - (please call to schedule follow up in clinic within 2 weeks ) Trinh Whelan PA-C [Primary Care Provider] - Diet: Regular Addtl Attending Provider Instructions: SPECIAL CARE INSTRUCTIONS: * You have skin glue over your incisions called dermabond. you may shower with this on. It will tend to dissolve and fall off within a couple weeks. Do not pick at the skin glue * You may shower . NO soaking in pools or baths for 2 weeks * No lifting greater than 10lbs. No strenuous exercise until cleared by surgeon. Light walking is accepted. * No driving while taking narcotic pain medication; wait at least 3 days * No drinking alcohol while taking narcotic pain medication * May use Ibuprofen/Tylenol over the counter for pain as tolerated. Do not exceed 3grams of Tylenol per 24 hours * Expect some swelling and bruising. * Diet- you may resume your regular diet Call your doctor if: * Temperature above 101 degrees, nausea/vomiting, fever/chills * Pain not relieved by pain medicine ordered * There is increased drainage or redness from any incision * You have any unanswered questions or concerns [phone]. FOLLOW UP VISIT: If not already scheduled, please call the office for a follow-up visit. Office Pending Studies at Discharge: Yes Studies:: surgical pathology Stand-Alone Forms: My [facility], Smoking Cessation Medications and DC Order Prescriptions: New oxycodone 5 mg tablet 5 - 10 mg PO .[id number] PRN (Reason: pain, for initial therapy, max 6 tabs per day) Qty: 15 0RF Continued Albuterol (Ventolin) inhaler 2 puff Inhalation QID 5 Days Qty: 0 fluoxetine 40 mg capsule 40 mg PO DAILY amlodipine 10 mg tablet 10 mg PO DAILY pantoprazole 40 mg tablet,delayed release (DR/EC) 40 mg PO DAILY montelukast 10 mg tablet 10 mg PO DAILY budesonide-formoterol 160-4.5 mcg/actuation HFA aerosol inhaler 1 puff INHALATION BID Discharge Orders: Discharge Order (Routine); Ordered 07/20/24 Ordered By: Fabiana Chacon Admission Data Admit Date/Time: 07/18/24 20:49 Attending Provider: Avis Fuller Admit Provider: Avis Fuller Primary Care Provider: Trinh Whelan Other Providers: Avis Fuller; Johnathan uFnes Other Interventions: Discharge Summary Assessment (RN) Last Done: 07/20/24 15:58 Supervising Physician Co-Signing Physician Notes Patient seen and examined, labs reviewed, agree with above. POD #1 laparoscopic cholecystectomy. Doing well, pain improved. Little sore at extraction site. Afebrile, stable vitals. Tolerating diet. Abdomen soft, probably tender to pal pation. WBC 18 from 12, other labs unremarkable. Plan to DC to home, follow-up in 2 weeks. Wound care instructions, activity restrictions, and return precautions given. Coding Level of Care Code 72473 IN/OBS DISCH 30 MIN/LESS Diagnoses Acute cholecystitis K81.0
--- NOTE | 2024-07-20 12:20 | Hospitalist Progress Note ---
Date of Service July 20, 2024 Assessment & Plan (1) Acute cholecystitis: Plan: Acute cholecystitis No sepsis for now s/p lap aidan 07/19, pt tolerating diet well. post sx mx per primary team Leucocytosis: likely 2/2 acute stress/recent surgery. pt w/ no fever, feels well. hypertension, better now. c/w home amlod. bronchial asthma, stable , c/w inhaler Hypokalemia : resolved. DVT prophylaxis. SCDs as per admission orders Dispo: per primary team Text document was generated using [employer] voice recognition software. It may contain grammatical or spelling errors. Kindly contact undersigned for clarification of any documentation item in question. Admission and Anticipated Discharge Date Admission Date: July 18, 2024 Subjective Pt was seen and examined at bedside. Pt sitting up in chair, nad, resting comfortably. on room air. Pt reports mild achy operative site and ruq pain, significantly better from presentation. pt is s/p lap aidan and is tolerating diet, no n/v per pt. pt denies fever or other ros. Physical Exam Physical Exam: GENERAL: Comfortable, pleasant, no respiratory distress SKIN: Normal color, warm HEENT: Gibbs palpebral conjunctivae, no ptosis, dry buccal mucosa NECK : Supple, no tenderness CHEST : CTA, no tenderness HEART : RRR, no obvious murmurs ABDOMEN: Some distention, minimal tenderness, lap choles sites c/d/i. EXTREMITIES : Minimal LE swelling, no LE tenderness, no other conspicuous deformities noted NEUROLOGIC : Coherent, no facial asymmetry, no other gross focality Results & Data Results & Data Vital Signs (Past 12 Hours) Vital Signs Temp Pulse Resp BP BP Pulse Ox O2 Del Method 07/20/24 07:11 36.9 C 86 16 114/70 95 Room Air 07/20/24 03:34 36.8 C 83 16 123/76 123/76 93 Room Air
== END 2024-07-20 16:10 | disposition home or self-care (01) ==
LOC: ED 15:34 → 3E 15:34